=== PATIENT | female | born 1950 | race Caucasian/White ===

== ENCOUNTER → 2020-07-07 11:34 | Outpatient (CLI) | payer OTHER, SELFPAY ==
--- NOTE | ~2020-07-07 | MR_ITS ---
EXAMINATION: MR cervical spine wo con DATE: 07/07/2020 12:25 INDICATION: Neck pain. Left arm pain and tingling. TECHNIQUE: Magnetic resonance imaging (MRI) of the cervical spine was performed without intravenous c ontrast. Sequences included sagittal T2-weighted FSE, sagittal T2-weighted FS FSE, sagittal T1-weight ed FSE, axial MERGE, and axial T2-weighted FSE. COMPARISON: None FINDINGS: Bone alignment is normal. There is mild chronic anterior wedging of C4 vertebral body. Inte rvertebral disc heights are normal. There are changes of anterior fusion procedure from C5 to C7 with anterior plate and screws and healed interbody bone graft at C5-C6. The spinal cord signal intensity is normal. The following disc levels are specifically discussed: C2-C3: There is a left central extrusion. There is mild left uncovertebral joint osteoarthritis. Ther e is severe bilateral facet joint osteoarthritis. There is mild left neural foraminal stenosis. There is no central canal stenosis. C3-C4: The disc does not extend beyond the endplate margin. There is no uncovertebral joint osteoarth ritis. There is ankylosis of the facet joints with moderate right and mild left hypertrophy. There is mild right neural foraminal stenosis. There is no central canal stenosis. C4-C5: The disc is bulging. There is mild bilateral uncovertebral joint hypertrophy. There is moderat e bilateral facet joint osteoarthritis. There is mild right and moderate left neural foraminal stenos is. There is mild central canal stenosis. C5-C6: There is no uncovertebral joint hypertrophy. There is no facet joint hypertrophy. There is no neural foraminal stenosis. There is no central canal stenosis. C6-C7: There is a right central extrusion. There is mild bilateral uncovertebral joint hypertrophy. T here is moderate left facet joint osteoarthritis. There is mild bilateral neural foraminal stenosis. There is mild central canal stenosis with ventral indentation of the spinal cord. C7-T1: The disc does not extend beyond the endplate margin. There is no uncovertebral joint osteoarth ritis. There is severe bilateral facet joint osteoarthritis. There is mild bilateral neural foraminal stenosis. There is no central canal stenosis. IMPRESSION: 1. Moderate cervical spondylosis. 2. Anterior fusion procedure from C5 to C7. Reviewed, dictated and finalized at location A.
== END ==
PROVIDERS: Visit Provider Emergency Medicine
DX: M47.892 Other spondylosis, cervical region (principal); Z98.1 Arthrodesis status
CPT/HCPCS: 72141

== ENCOUNTER → 2020-08-23 11:24 | Outpatient (CLI) | payer OTHER, SELFPAY ==
--- NOTE | ~2020-08-23 | MM_ITS ---
EXAMINATION: MM screening scarlett BI w eri HISTORY: Screening mammogram TECHNIQUE: Craniocaudal and mediolateral oblique 3-D tomosynthesis images were obtained and synthetic 2-D images were generated. CAD analysis was submitted and interpreted. COMPARISON: 05/09/2019, 03/10/2018, 03/09/2017 bilateral digital screening mammogram examinations BREAST PARENCHYMAL COMPOSITION: There are scattered areas of fibroglandular density. FINDINGS: Numerous scattered bilateral benign calcifications are noted. There is no evidence of suspi cious mass, calcification, or architectural distortion to suggest malignancy in either breast. There has been no suspicious interval change. IMPRESSION: 1. No mammographic evidence of malignancy. 2. Recommend routine screening mammography in one year. BI-RADS Category 2: Benign finding(s). Reviewed, dictated and finalized at location A. ETRICS NURSE
== END ==
PROVIDERS: PCP Emergency Medicine; Visit Provider Emergency Medicine
DX: Z12.31 Encounter for screening mammogram for malignant neoplasm of breast (principal)
CPT/HCPCS: 77063; 77067

== ENCOUNTER → 2020-09-04 13:42 | Outpatient (CLI) | payer OTHER, SELFPAY ==
--- NOTE | ~2020-09-04 | XR_ITS ---
EXAMINATION: XR TMJ BI DATE: 09/04/2020 14:10 INDICATION: Sprain of jaw, unspecified site, initial encounter. TECHNIQUE: Open and closed mouth views of both temporomandibular joints on a total of 5 radiographs w ere obtained. COMPARISON: Head CT 11/24/2018 FINDINGS: Bone alignment is normal. There is normal anterior translation of the mandibular condyles i n the open-mouth position. There is severe bilateral temporomandibular joint osteoarthritis. IMPRESSION: 1. Severe bilateral temporomandibular joint osteoarthritis. Reviewed, dictated and finalized at location A. CULTURE DEPARTMENT CHAIR
== END ==
PROVIDERS: PCP Emergency Medicine; Visit Provider Emergency Medicine
DX: S03.40XA Sprain of jaw, unspecified side, initial encounter (principal); M19.09 Primary osteoarthritis, other specified site
CPT/HCPCS: 70330

== ENCOUNTER → 2020-11-19 11:47 | Outpatient (CLI) | payer OTHER, SELFPAY ==
--- NOTE | ~2020-11-19 | XR_ITS ---
EXAMINATION: XR cervical spine 4-5V EXAM DATE: 11/19/2020 12:28 INDICATION: Cervical pain radiating into left arm, occasional left finger tingling. History cervical spine surgery 2009. TECHNIQUE: Cervical spine frontal, lateral, lateral swimmers, and open-mouth odontoid projections. C orrelation was made with cervical spine MR 07/07/2020. FINDINGS: There is intact cervical fusion C5-7 with anterior plate, supporting screws and solid bone bridging suspected. There is overall moderate cervical arthropathy. The vertebral body heights are m aintained between C2-5. The odontoid process is intact. The lateral masses of C1 line up with C2. Pr evertebral soft tissue and pre-dens space are within normal limits. There are no acute fractures iden tified. Lung apices are clear. IMPRESSION: 1. Cervical fusion C5-7. 2. Overall moderate cervical arthropathy. Reviewed, dictated and finalized at location A. OR MANAGER
--- NOTE | ~2020-11-19 | XR_ITS ---
EXAMINATION: XR lumbar spine 2-3V EXAM DATE: 11/19/2020 12:27 INDICATION: Low back pain progressing over last few months. TECHNIQUE: Lumber spine frontal, lateral, lateral L5-S1 projections for interpretation. Comparison is made to prior examination from 05/30/2013. FINDINGS: There is 5 mm anterolisthesis L3 on L4 with moderate loss of this disc height. There is 6 mm anterolisthesis L4 on L5 with mild to moderate loss of this disc height. There is 3 mm retrolisthe sis L5 on S1 with moderate loss of this disc height. Mild to moderate disc disease L1-L3. There is mo derate to severe lower lumbar facet arthropathy. No spondylolysis. Mild aortic arterial sclerosis. Th ere are cholecystectomy clips. Mild lumbar levoscoliosis. Sacrum, sacroiliac joints, sacral arcuate l jose armando are intact. Compared to 2012, mild progression in the subluxations, and more appreciable progression of the spond ylosis. IMPRESSION: 1. Multiple lumbar subluxations and moderate disc disease. 2. Advanced lower lumbar facet arthropathy. Reviewed, dictated and finalized at location A. ES' REGISTRY DIRECTOR
== END ==
PROVIDERS: Visit Provider Pain Medicine Interventional Pain Medicine
DX: M47.813 Spondylosis without myelopathy or radiculopathy, cervicothoracic region (principal); Z51.81 Encounter for therapeutic drug level monitoring; Z79.899 Other long term (current) drug therapy; M50.123 Cervical disc disorder at C6-C7 level with radiculopathy; M47.816 Spondylosis without myelopathy or radiculopathy, lumbar region; R68.84 Jaw pain; M50.122 Cervical disc disorder at C5-C6 level with radiculopathy; F33.1 Major depressive disorder, recurrent, moderate; Z98.1 Arthrodesis status
CPT/HCPCS: 72050; 72100

== ENCOUNTER 2020-11-26 11:13 | Outpatient (CLI) | payer OTHER, MEDICARE, SELFPAY | END 2020-11-26 11:14 | disposition home or self-care (01) | LOC: ANHCOVIDVC 11:13 | PROVIDERS: PCP Emergency Medicine | DX: Z23 Encounter for immunization (principal) | CPT/HCPCS: 0001A; 91300 ==

== ENCOUNTER 2020-12-17 11:11 | Outpatient (CLI) | payer OTHER, MEDICARE, SELFPAY | END 2020-12-17 11:12 | disposition home or self-care (01) | LOC: ANHCOVIDVC 11:11 | PROVIDERS: PCP Emergency Medicine | DX: Z23 Encounter for immunization (principal) | CPT/HCPCS: 0002A; 91300 ==

== ENCOUNTER 2021-02-15 12:34 | Emergency (ER) | payer OTHER, SELFPAY ==
--- NOTE | ~2021-02-15 | CT_ITS ---
EXAMINATION: CT brain wo con INDICATION: Right-sided headache, photophobia and dizziness COMPARISON: 11/24/2018 TECHNIQUE: Standard unenhanced head CT. The dose-length product (DLP) was 529.67 mGy-cm. The mA was a djusted according to patient size. Iterative reconstruction technique was employed. FINDINGS: There is no acute intraparenchymal hemorrhage. No evidence of mass lesion. No evidence of a cute infarction. There is mild periventricular and subcortical hypodensity probably related to small vessel ischemic disease. There is mild prominence of the sulci and ventricles related to cerebral atr ophy. Intracranial calcified cerebral atherosclerosis is noted. There are no extra-axial collections. There is no mass effect or midline shift. Changes in the globes are likely from ocular lens surgery. The visualized sinuses and mastoid air cells are well aerated. IMPRESSION: 1. No acute intracranial abnormality. 2. Age related findings. Reviewed, dictated and finalized at location B.
[2021-02-15 12:37] VITALS: BP 141/48; PULSE 67; RESP 20; TEMP 36.6; O2SAT 98
--- NOTE | 2021-02-15 13:08 | ED.HA ---
HPI - Headache General Chief Complaint: Headache Stated Complaint: headache Time Seen by Provider: 02/15/21 12:50 Source: patient Mode of arrival: ambulatory Limitations: no limitations History of Present Illness HPI Narrative: Patient is a 68-year-old female complaining of headache, right-sided, dull, 6 out of 10, nonradiating started approximately 2 weeks ago. Patient denies any dizziness, speech or visual disturbance, focal weakness or numbness, unsteady gait, neck pain or stiffness, fever or chills. Related Data Home Medications Medication Instructions Recorded Confirmed cholecalciferol (vitamin D3) 25 1,000 unit PO DAILY 07/27/19 10/23/20 mcg (1,000 unit) capsule oxybutynin chloride mg PO 02/15/21 Allergies Allergy/AdvReac Type Severity Reaction Status Date / Time No Known Allergies Allergy Unknown Unverified 07/06/19 09:14 No Known Allergies Allergy Uncoded 07/06/19 09:14 Review of Systems Review of Systems: All systems reviewed & are unremarkable except as noted in HPI and below Constitutional: Constitutional: Denies body ache(s), Denies chills, Denies excessive sweating, Denies fatigue, Denies fever(s), Denies headache(s), Denies lethargy, Denies malaise, Denies weakness and Denies weight loss Eyes: Eyes: Denies blurry vision, Denies change in vision and Denies loss of vision ENT: Denies dizziness, Denies ear discharge, Denies headache(s), Denies lip swelling, Denies epistaxis, Denies nasal congestion, Denies neck pain, Denies throat swelling and Denies tongue swelling Cardiovascular: Cardiovascular: Denies chest pain, Denies chest pain at rest, Denies chest pain with activity, Denies diaphoresis, Denies rapid heart rate, Denies edema, Denies irregular heart rhythm, Denies lightheadedness, Denies palpitations, Denies dyspnea and Denies dyspnea on exertion Respiratory: Respiratory: Denies chest congestion, Denies cough, Denies hemoptysis, Denies dyspnea and Denies dyspnea on exertion Gastrointestinal: Gastrointestinal: Denies abdominal pain, Denies melena, Denies hematochezia, Denies diarrhea, Denies nausea, Denies vomiting and Denies hematemesis Musculoskeletal: Musculoskeletal: Denies abnormal gait, Denies deformity, Denies joint swelling, Denies limited range of motion, Denies neck pain and Denies numbness Neurologic: Denies Abnormal speech present, Denies abnormal gait, Denies confusion, Denies dizziness, Denies focal weakness, Denies loss of vision, Denies numbness, Denies Other visual disturbances, Denies Sensory deficit (Neuro) and Denies weakness Psychiatric: Psychiatric: Denies confusion, Denies depression, Denies auditory hallucinations, Denies homicidal ideation and Denies suicidal ideation Endocrine: Endocrine: Denies cold intolerance, Denies excessive sweating, Denies fatigue, Denies heat intolerance and Denies palpitations Hematologic/Lymphatic: Hematologic/Lymphatic: Denies easy bleeding and Denies easy bruising Allergic/Immunologic: Allergic/Immunologic: Denies lip swelling, Denies throat swelling and Denies tongue swelling PMFSH Past Medical History Medical History (Updated 02/15/21 @ 14:22 by Robin Mondragon MD) Depression Family History Family History Mother Acute myocardial infarction, Onset Age: 68 Father Cerebrovascular accident Sibling Cerebrovascular accident Family history of malignant neoplasm Family history of heart disease in male family member before age 55 Other Diabetes mellitus Family history of gastrointestinal disorder Hypertension Social History Social History Smoking status: Never smoker Alcohol intake: never Gender identity (if verbalized by the patient): Female Exam Const: General: cooperative, healthy appearing, comfortable, no acute distress, well developed, alert and awake; No confusion Orientation/consciousn
[2021-02-15 13:39] VITALS: BP 146/64; PULSE 66; RESP 14; O2SAT 98
[2021-02-15] MEDS: HYDROmorphone HCL INJ (*CRX) 1 MG/ML SYR 0.5 MG IV PUSH (13:39)
[2021-02-15 14:43] VITALS: BP 135/66; PULSE 65; RESP 15; O2SAT 98
== END 2021-02-15 14:54 | disposition home or self-care (01) ==
PROVIDERS: Emergency Provider Emergency Medicine; PCP Emergency Medicine
DX: R51.9 Headache, unspecified (principal)
CPT/HCPCS: 70450; 96374; 99284; J1170

== ENCOUNTER 2021-05-20 10:28 | Outpatient (CLI) | payer OTHER, SELFPAY ==
--- NOTE | ~2021-05-20 | XR_ITS ---
EXAMINATION: XR barium swallow DATE: 05/20/2021 11:04 INDICATION: Dysphagia TECHNIQUE: The patient drank thick barium, gas-producing crystals, and thin barium. Fluoroscopy of th e hypopharynx and esophagus was performed. Fluoroscopy exposure time was 1.1 minutes. The DAP for thi s procedure was 2.822 Gycm2. COMPARISON: None. FINDINGS: There is no mass or stricture of the esophagus. Esophageal motility is normal. There is no hiatal hernia. There was no gastroesophageal reflux with provocative maneuvers. Changes of anterior f usion procedure are noted in the cervical spine. IMPRESSION: 1. No correlate identified for the patient's symptoms. Reviewed, dictated and finalized at location A.
== END 2021-05-20 10:29 | disposition home or self-care (01) ==
LOC: ANHIMG 10:29
PROVIDERS: PCP Emergency Medicine; Visit Provider Otolaryngology
DX: K14.6 Glossodynia (principal)
CPT/HCPCS: 74220

== ENCOUNTER 2021-06-12 00:06 | Day surgery (SDC) | payer OTHER, SELFPAY ==
[2021-04-18 12:55] VITALS: BMI 26.6
[2021-06-04 16:03] VITALS: BMI 25.8
[2021-06-12 11:11] VITALS: BP 138/68; PULSE 62; RESP 16; TEMP 36.1; O2SAT 97
--- NOTE | 2021-06-12 11:21 | WPDANESEPPF ---
Anes - Initial Pre Proc Eval Procedure: Operation Date: 06/12/21 11:30 Proposed Procedures p Screening Colonoscopy - Wesley Pineda MD Date/Time: 06/12/21 11:21 Surgeon: Wesley Pineda MD Pre Op Diagnosis: neoplasm screening Patient Data Age: 71 Gender: F Height: 1.57 m Weight: 62.5 kg Last Vital Signs Temp 36.1 C L 06/12/21 11:11 Pulse 62 06/12/21 11:11 Resp 16 06/12/21 11:11 BP 138/68 06/12/21 11:11 Pulse Ox 97 06/12/21 11:11 Allergies Allergy/AdvReac Type Severity Reaction Status Date / Time No Known Allergies Allergy Unknown Verified 06/12/21 11:09 Home Medications Medication Instructions Recorded Confirmed Type cholecalciferol (vitamin D3) 25 1,000 unit PO DAILY 07/27/19 06/12/21 History mcg (1,000 unit) capsule lisinopril 40 mg tablet 40 mg PO DAILY #90 tablet 10/23/20 06/12/21 Rx oxybutynin chloride 5 mg PO DAILY 02/15/21 06/12/21 History amlodipine 10 mg PO DAILY 04/18/21 06/12/21 History lactobacillus combination no.8 1 cell PO DAILY 04/18/21 06/12/21 History [Adult Probiotic] pantoprazole 40 mg PO BID 04/18/21 06/12/21 History sertraline 100 mg PO DAILY 04/18/21 06/12/21 History Patient hx anesthesia problems: none Family hx anesthesia problems: none PMFSH Past Medical History Medical History (Updated 06/12/21 @ 11:23 by Ace Guzman MD) Cervical radiculopathy Depression GERD (gastroesophageal reflux disease) HTN (hypertension) Family History Family History Mother Acute myocardial infarction, Onset Age: 68 Father Cerebrovascular accident Sibling Cerebrovascular accident Family history of malignant neoplasm Family history of heart disease in male family member before age 55 Other Diabetes mellitus Family history of gastrointestinal disorder Hypertension Social History Social History Smoking status: Never smoker Alcohol intake: never Substance use type: does not use Living arrangements: with family Gender identity (if verbalized by the patient): Female Spiritual care concerns: No Anes - Eval Final PreProcedure Day of Procedure 06/12/21 11:21 Patient weight: overweight Heart: regular rate and rhythm Lungs: clear to auscultation and normal air movement Airway: Mallampati scale class II Neurological: alert and oriented Last oral intake: >/= 8 hours ASA classification: II Emergent: no Anesthetic plan: proceed Anesthesia type and monitoring: general GIVS Informed Consent: The patient's anesthetic plan and its attendant risks and benefits were discussed with the patient/family/POA. Questions were solicited and answers provided to the satisfaction of the patient/family/POA.
[2021-06-12] MEDS: LACTATED RINGERS 1,000 ML 150 ML IV CONT (11:22)
--- NOTE | 2021-06-12 12:04 | PM.HPGS ---
History of Present Illness History of Present Illness Consent: Risks, benefits, and alternatives have been discussed and questions answered. Patient agrees to proceed with procedure. Chief complaint: neoplasm screening Narrative: Ruth Lopez is a 71 year old female with colon polyp in 2012 Review of Systems Constitutional: Constitutional: Denies headache(s) and Denies weakness Eyes: Eyes: Denies blurry vision ENT: Reports Normal hearing present, Denies headache(s) and Denies neck pain Cardiovascular: Cardiovascular: Denies chest pain and Denies dyspnea Respiratory: Respiratory: Denies dyspnea Gastrointestinal: Gastrointestinal: Reports no additional gastrointestinal complaints Genitourinary: Genitourinary: Denies dysuria Musculoskeletal: Musculoskeletal: Denies neck pain Integumentary/Breasts: Skin/Breast: Denies dry skin Neurologic: Reports Normal hearing present, Denies headache(s) and Denies weakness Psychiatric: Psychiatric: Denies anxiety Endocrine: Endocrine: Denies change in body appearance Hematologic/Lymphatic: Hematologic/Lymphatic: Denies easy bleeding Allergic/Immunologic: Allergic/Immunologic: Denies urticaria PMF Past Medical History Medical History (Updated 06/12/21 @ 12:04 by Wesley Pineda MD) Cervical radiculopathy Colon polyp Depression GERD (gastroesophageal reflux disease) HTN (hypertension) Family History Family History Mother Acute myocardial infarction, Onset Age: 68 Father Cerebrovascular accident Sibling Cerebrovascular accident Family history of malignant neoplasm Family history of heart disease in male family member before age 55 Other Diabetes mellitus Family history of gastrointestinal disorder Hypertension Social History Social History Smoking status: Never smoker Alcohol intake: never Substance use type: does not use Living arrangements: with family Gender identity (if verbalized by the patient): Female Spiritual care concerns: No Meds Home Medications and Allergies Home Medications Medication Instructions Recorded Confirmed Type cholecalciferol (vitamin D3) 25 1,000 unit PO DAILY 07/27/19 06/12/21 History mcg (1,000 unit) capsule lisinopril 40 mg tablet 40 mg PO DAILY #90 tablet 10/23/20 06/12/21 Rx oxybutynin chloride 5 mg PO DAILY 02/15/21 06/12/21 History amlodipine 10 mg PO DAILY 04/18/21 06/12/21 History lactobacillus combination no.8 1 cell PO DAILY 04/18/21 06/12/21 History [Adult Probiotic] pantoprazole 40 mg PO BID 04/18/21 06/12/21 History sertraline 100 mg PO DAILY 04/18/21 06/12/21 History Allergies Allergy/AdvReac Type Severity Reaction Status Date / Time No Known Allergies Allergy Unknown Verified 06/12/21 11:09 Vital Signs Vital Signs - 24 hr 06/12/21 11:11 Temperature 97.0 F L Pulse Rate 62 Respiratory Rate 16 Blood Pressure 138/68 Pulse Oximetry 97 Exam Const: General: comfortable and no acute distress HENMT: General nose exam: Normal nares present Eyes: General: appearance normal, both eyes and all related structures Neck: Neck: no JVD Resp: Auscultation: clear to auscultation bilaterally Cardio: Rate: regular rate Rhythm: regular rhythm GI: Inspection: non-distended GI Palp: Yes Soft to palpation Skin: General skin exam: normal color Neuro: General: gait normal Speech: normal speech Extrem: General: normal to inspection Psych: Mental Status: mental status grossly normal Assessment and Plan Assessment and plan (1) Colon polyp: Code(s): K63.5 - Polyp of colon Status: Acute Assessment and Plan: colonoscopy
[2021-06-12 12:37] VITALS: BP 142/67; PULSE 50; RESP 25; O2SAT 96
[2021-06-12 12:47] VITALS: BP 135/95; PULSE 51; RESP 24; O2SAT 99
[2021-06-12 12:57] VITALS: BP 134/70; PULSE 50; RESP 18; O2SAT 98
== END 2021-06-12 13:12 | disposition home or self-care (01) ==
PROVIDERS: PCP Emergency Medicine; Visit Provider Internal Medicine Gastroenterology
PROC: 0DJD8ZZ Inspection of Lower Intestinal Tract, Via Natural or Artificial Opening Endoscopic (ICD-10-PCS; CPT 45378; principal; 2021-06-12 11:30)
DX: Z12.11 Encounter for screening for malignant neoplasm of colon (principal); D12.0 Benign neoplasm of cecum; D12.3 Benign neoplasm of transverse colon; K63.5 Polyp of colon; K57.30 Diverticulosis of large intestine without perforation or abscess without bleeding; K64.8 Other hemorrhoids; I10 Essential (primary) hypertension; K21.9 Gastro-esophageal reflux disease without esophagitis; F32.9 Major depressive disorder, single episode, unspecified
CPT/HCPCS: 45380; 45385; 88305; J2001; J2704; J7120

== ENCOUNTER → 2021-10-04 09:43 | Outpatient (CLI) | payer OTHER, SELFPAY ==
--- NOTE | ~2021-10-04 | MM_ITS ---
EXAMINATION: MM screening scarlett BI w eri HISTORY: Screening TECHNIQUE: Craniocaudal and mediolateral oblique 3-D tomosynthesis images were obtained and synthetic 2-D images were generated. CAD analysis was submitted and interpreted. COMPARISON: Comparison to multiple prior studies sequentially, with oldest reviewed study dated 04/2015. BREAST PARENCHYMAL COMPOSITION: There are scattered areas of fibroglandular density. FINDINGS: There is no evidence of suspicious mass, calcification, or architectural distortion to sugg est malignancy in either breast. There has been no suspicious interval change. IMPRESSION: 1. No mammographic evidence of malignancy. 2. Recommend routine screening mammography in one year. BI-RADS Category 1: Negative Reviewed, dictated and finalized at location A. ING REGULATION ENFORCEMENT OFFICER
== END ==
PROVIDERS: PCP Emergency Medicine; Visit Provider Emergency Medicine
DX: Z12.31 Encounter for screening mammogram for malignant neoplasm of breast (principal)
CPT/HCPCS: 77063; 77067

== ENCOUNTER → 2021-11-18 11:35 | Outpatient (CLI) | payer OTHER, SELFPAY ==
--- NOTE | ~2021-11-18 | XR_ITS ---
XR lumbar spine 2-3V DATE: 11/18/2021 12:06 INDICATION: Lumbosacral radiculopathy TECHNIQUE: Standing AP, lateral and coned lateral lumbosacral views COMPARISON: 11/19/2020 lumbar spine FINDINGS: There is diffuse osteopenia. There is mild levoscoliosis of lumbar spine. There is grade 1 anterolisthesis at L3-4 and L4-5 due to prominent degenerative change at the apophys eal joints. There is moderate degenerative disc disease at L1-2, mild at L2-3, probably severe at L3-4, mild at L 4-5 and L5-S1. No fracture or bone destruction is detected. The included lower thoracic and lumbar pedicles are inta ct. The sacroiliac joints are normal. Status post cholecystectomy. Extensive calcification of the abdominal aorta. IMPRESSION: Diffuse osteopenia Mild levoscoliosis Multilevel degenerative disc disease, most pronounced at L3-4 Prominent degenerative change at the apophyseal joints with grade 1 anterolisthesis at L3-4 and L4-5 Little interval change since 11/19/2020 Reviewed, dictated and finalized at location A. LIANCE MONITOR IMPRESSION: Diffuse osteopenia Mild levoscoliosis Multilevel degenerative disc disease, most pronounced at L3-4 Prominent degenerative change at the apophyseal joints with grade 1 anterolisth esis at L3-4 and L4-5 Little interval change since 11/19/2020
--- NOTE | ~2021-11-18 | XR_ITS ---
XR cervical spine 4-5V DATE: 11/18/2021 12:06 INDICATION: Radiculopathy, cervical region TECHNIQUE: AP, open-mouth, lateral, swimmer views COMPARISON: 11/19/2020 cervical spine FINDINGS: Status post anterior cervical spine surgical fusion at C5 7. Diffuse osteopenia. C1 and C2 are normally aligned and the odontoid process is intact. No fracture or dislocation or locked facet or prevertebral soft tissue swelling. IMPRESSION: Status post anterior surgical fusion at C5 7 Osteopenia Reviewed, dictated and finalized at location A. CONTENT DIRECTOR
== END ==
PROVIDERS: Visit Provider Family Medicine
DX: M54.16 Radiculopathy, lumbar region (principal); M54.12 Radiculopathy, cervical region; Z98.1 Arthrodesis status; M85.88 Other specified disorders of bone density and structure, other site; M41.86 Other forms of scoliosis, lumbar region; M51.36 Other intervertebral disc degeneration, lumbar region; M43.16 Spondylolisthesis, lumbar region
CPT/HCPCS: 72050; 72100

== ENCOUNTER → 2021-11-26 12:38 | Outpatient (CLI) | payer OTHER, SELFPAY ==
--- NOTE | ~2021-11-26 | MR_ITS ---
EXAMINATION: MR cervical spine wo con DATE: 11/26/2021 13:42 INDICATION: Right neck pain. TECHNIQUE: Magnetic resonance imaging (MRI) of the cervical spine was performed without intravenous c ontrast. Sequences included sagittal T2-weighted FSE, sagittal STIR FSE, sagittal T1-weighted FSE, ax ial MERGE, and axial T2-weighted FSE. COMPARISON: Cervical spine MRI 07/07/2020 FINDINGS: Bone alignment is normal. There are changes of anterior fusion procedure from C5 to C7 with anterior plate and screws. There is healed interbody bone graft at C5-C6. There is no bridging bone at C6-C7. There is mild chronic anterior wedging of C4 vertebral body. There is increased T2-weighted signal intensity in the spinal cord at C6-C7, consistent with myelomalacia. The following disc level s are specifically discussed: C2-C3: The disc does not extend beyond the endplate margin. There is no uncovertebral joint osteoarth ritis. There is severe bilateral facet joint osteoarthritis. There is mild left neural foraminal sten osis. There is no central canal stenosis. C3-C4: The disc does not extend beyond the endplate margin. There is mild right uncovertebral joint o steoarthritis. There is ankylosis of the facet joints with mild hypertrophy. There is moderate right neural foraminal stenosis. There is no central canal stenosis. C4-C5: The disc does not extend beyond the endplate margin. There is mild bilateral uncovertebral lara nt osteoarthritis. There is severe bilateral facet joint osteoarthritis. There is mild right and mode rate left neural foraminal stenosis. There is no central canal stenosis. C5-C6: There is mild bilateral uncovertebral joint hypertrophy. There is mild left facet joint hypert rophy. There is no neural foraminal stenosis. There is no central canal stenosis. C6-C7: There is a right central extrusion. There is moderate bilateral uncovertebral joint osteoarthr itis. There is mild right and severe left facet joint osteoarthritis. There is mild bilateral neural foraminal stenosis. There is moderate central canal stenosis with ventral and dorsal indentation of s enmanuel cord. C7-T1: The disc does not extend beyond the endplate margin. There is no uncovertebral joint osteoarth ritis. There is severe bilateral facet joint osteoarthritis. There is mild bilateral neural foraminal stenosis. There is no central canal stenosis. IMPRESSION: 1. Myelomalacia at C6-C7. 2. Anterior fusion procedure from C5 to C7. 3. Moderate cervical spondylosis, stable from 07/07/2020. Reviewed, dictated and finalized at location A. NESS OFFICE TECHNOLOGY INSTRUCTOR
== END ==
PROVIDERS: PCP Emergency Medicine; Visit Provider Emergency Medicine
DX: Z98.1 Arthrodesis status (principal); M47.816 Spondylosis without myelopathy or radiculopathy, lumbar region; M48.061 Spinal stenosis, lumbar region without neurogenic claudication; G95.89 Other specified diseases of spinal cord
CPT/HCPCS: 72141

== ENCOUNTER 2022-01-17 13:56 | Outpatient (CLI) | payer OTHER, SELFPAY ==
--- NOTE | ~2022-01-17 | CT_ITS ---
EXAMINATION: CT cervical spine wo con DATE: 01/17/2022 14:19 INDICATION: Cervical spondylosis with myelopathy. TECHNIQUE: Computed tomography (CT) of the cervical spine was performed without intravenous contrast. Automated exposure control and iterative reconstruction technique were employed. The dose-length pro duct was 194.98 mGy-cm. COMPARISON: Cervical spine MRI 11/26/2021 FINDINGS: There is 4 degrees dextrocurvature of cervical spine. Vertebral body heights are normal. Th ere are changes of anterior fusion procedure from C5 to C7 with anterior plate and screws. There is h ealed interbody bone graft at C5-C6. Interbody bone graft does not demonstrate interbody bridging at C6-C7. There is mildly decreased disc height at C4-C5. The following disc levels are specifically dis cussed: C2-C3: There is mild left uncovertebral joint osteoarthritis. There is moderate right and severe left facet joint osteoarthritis. There is mild left neural foraminal stenosis. There is no central canal stenosis. C3-C4: There is ankylosis of the uncovertebral joints with mild hypertrophy on the right. There is an kylosis of the facet joints with severe right and mild left hypertrophy. There is moderate right neur al foraminal stenosis. There is no central canal stenosis. C4-C5: There is mild left uncovertebral joint osteoarthritis. There is severe bilateral facet joint o steoarthritis. There is mild bilateral neural foraminal stenosis. There is no central canal stenosis. C5-C6: There is mild bilateral uncovertebral joint hypertrophy. There is ankylosis of the facet joint s with mild hypertrophy. There is mild bilateral neural foraminal stenosis. There is mild central can al stenosis. C6-C7: There is mild bilateral uncovertebral joint osteoarthritis. There is mild right and severe lef t facet joint osteoarthritis. There is mild right and moderate left neural foraminal stenosis. There is mild central canal stenosis. C7-T1: There is no uncovertebral joint osteoarthritis. There is mild right and severe left facet join t osteoarthritis. There is mild left neural foraminal stenosis. There is no central canal stenosis. IMPRESSION: 1. Anterior fusion procedure from C5 to C7 without bridging interbody bone at C6-C7. 2. Moderate cervical spondylosis. Reviewed, dictated and finalized at location B. IMPRESSION: 1. Anterior fusion procedure from C5 to C7 without bridging interbody bone at C 6-C7. 2. Moderate cervical spondylosis.
== END 2022-01-17 13:57 | disposition home or self-care (01) ==
PROVIDERS: PCP Emergency Medicine; Visit Provider Neurological Surgery
DX: M47.23 Other spondylosis with radiculopathy, cervicothoracic region (principal); M48.03 Spinal stenosis, cervicothoracic region; Z98.1 Arthrodesis status
CPT/HCPCS: 72125

== ENCOUNTER 2022-02-06 06:50 | Outpatient (CLI) | payer OTHER, SELFPAY ==
[2022-02-03 12:16] VITALS: BMI 24.9
[2022-02-06] VITALS (7 sets, daily range): BP systolic 126–131; BP diastolic 52–92; PULSE 45–51; RESP 16–20; TEMP 36.3; O2SAT 95–97
--- NOTE | ~2022-02-06 | CT_ITS ---
EXAMINATION: CT cervical spine w con DATE: 02/06/2022 09:19 INDICATION: Cervical spondylosis with myelopathy TECHNIQUE: Computed tomography (CT) myelogram of the cervical spine was performed with intrathecal co ntrast but without intravenous contrast. Details of the intrathecal contrast demonstration of been di ctated separately. Automated exposure control and iterative reconstruction technique were employed. T he dose-length product was 256.59 mGy-cm. COMPARISON: Cervical spine CT dated 01/17/2022 FINDINGS: No interval change in 4 mm lower cervical dextrocurvature. Sagittal alignment is normal. C5-C7 anteri or spinal fusion with anterior plate and screw fixation. There is solid fusion across the C5-C6 disc space. The C6-C7 disc space remains unfused with incorporation of bone graft material along the infer ior end plate of C6 but with no more caudal bridging to the C7 vertebral body. There is small amount of heterotopic ossification fused to the right posterior endplate of C7 which narrows the central can al is would be detailed below. Unfused vertebral body heights are normal. Mild disc height loss at C4 -C5. Cervical soft tissues are unremarkable. Mastoid air cells, middle ear cavities and visualized po rtions of the paranasal sinuses, airway and apices of lungs are clear. The following disc levels are specifically discussed: C2-C3: Small central disc protrusion. There is mild bilateral uncovertebral joint osteoarthritis. The re is moderate right and severe left facet joint osteoarthritis. There is mild left neural foraminal stenosis. There is minimal central canal stenosis. C3-C4: Minimal central disc protrusion. There is ankylosis of the bilateral uncovertebral and facet j oints with severe hypertrophic changes at the right facet joint and mild hypertrophic changes at the left facet and right uncovertebral joints. There is moderate right neural foraminal stenosis. There i s minimal central canal stenosis. C4-C5: The disc does not extend beyond the endplate margin. There is mild left uncovertebral joint os teoarthritis. There is severe bilateral facet joint osteoarthritis. There is mild bilateral neural fo raminal stenosis. There is no central canal stenosis. C5-C6: The disc spaces solidly fused with small right paracentral osteophyte. No significant hypertro phic change at the fused uncovertebral joints. There is beginning fusion of the bilateral facet joint s with mild hypertrophy. There is mild bilateral neural foraminal stenosis. There is mild central can al stenosis. C6-C7: Mild hypertrophic change along the endplates. Right paracentral heterotopic ossicle at the lev el of the still unfused disc space which measures 10 mm left to right, 9 mm craniocaudally and up tor 4 mm in AP diameter. There is mild bilateral uncovertebral joint osteoarthritis. There is mild right and severe left facet joint osteoarthritis. There is mild right and moderate left neural foraminal s tenosis. There is mild to moderate right-sided predominant central canal stenosis with the heterotopi c ossicle indenting the right ventral surface of the cord. C7-T1: The disc does not extend beyond the endplate margin. There is minimal bilateral uncovertebral joint osteoarthritis. There is mild right and severe left facet joint osteoarthritis. There is mild l eft neural foraminal stenosis. There is no central canal stenosis. IMPRESSION: 1. Moderate cervical spondylosis with instrumented anterior spinal fusion from C5-C7 which remains wi thout bridging interbody bone at the C6-C7 level. Reviewed, dictated and finalized at location A. IMPRESSION: 1. Moderate cervical spondylosis with instrumented anterior spinal fusion from C5-C7 which remains without bridging interbody bone at the C6-C7 leve
--- NOTE | ~2022-02-06 | XR_ITS ---
EXAMINATION: XR myelogram spine cervical DATE: 02/06/2022 09:09 INDICATION: Cervical spine pain TECHNIQUE: The procedure including the risks and benefits was discussed with the patient. Risks discu ssed included spinal headache, cerebrospinal fluid leak, bleeding, and infection. The patient underst ood the risks and agreed to proceed. A timeout was performed to verify the patient's name, date of , and procedure to be performed. The skin overlying the L4-L5 level was prepped and draped in usual sterile fashion. Subcutaneous 1% lidocaine was used for local anesthesia. A 22 gauge spinal n eedle was advanced under fluoroscopic guidance. A total of 10 mL with Omnipaque-300 was injected with intra-articular administration confirmed with intermittent fluoroscopy. The needle was removed and t he entry site was cleaned and dressed. The footplate of the table was then elevated with cephalad adv ancement of the contrast bolus observed with intermittent fluoroscopy. PA and lateral images of the c ervical spine were obtained. There were no immediate complications. Fluoroscopy exposure time was 0.6 minutes. A total of 10 fluoroscopic images were recorded. FINDINGS: Real-time fluoroscopy demonstrates the needle at the L4-L5 level. Injected contrast fills a intrathecal space at the lumbar spine. Lucent bands consistent with disc bulges at L3-L4 and L4-L5. Subsequent images demonstrate faint contrast within the intrathecal space at the cervical spine. Ther e is been a prior C5-7 anterior spinal fusion with anterior plate and screw fixation. IMPRESSION: 1. Successful fluoro-guided lumbar puncture and intrathecal contrast administration for subsequent CT cervical myelogram. See separate CT myelogram report for analysis of the cervical spine. Reviewed, dictated and finalized at location A. IMPRESSION: 1. Successful fluoro-guided lumbar puncture and intrathecal contrast administra tion for subsequent CT cervical myelogram. See separate CT myelogram report for analysis of the cervical spine.
[2022-02-06 07:34] LABS: Mean Platelet Volume 11.3 fl (7.4-10.4); Platelet Count Result 172 k/mm3 (150-375)
[2022-02-06 07:50] LABS: Prothrombin Time 13.2 Seconds (11.1-14.7)
--- NOTE | 2022-02-06 09:44 | SUR.PHASEII ---
pt c/o chronic neck and back pain. This nurse attempted to call Dr. davies and I got no answer. This nurse will attempt to call again in 5 minutes.
[2022-02-06] MEDS: oxyCODONE/ACETAMINOPHEN (*CRX) 5-325 MG TABLET 1 TABLET PO (10:09)
--- NOTE | 2022-02-06 11:44 | SUR.PHASEII ---
PT OK TO GO HOME PER DR. FRITZ AND HE SAID HE DID NOT NEED TO SEE PT BEFORE GOING HOME. PT MEETS DISCHARGE CRITERIA.
== END 2022-02-06 11:45 | disposition home or self-care (01) ==
PROVIDERS: PCP Emergency Medicine; Referring Provider Neurological Surgery; Visit Provider Radiology Diagnostic Radiology
DX: M47.813 Spondylosis without myelopathy or radiculopathy, cervicothoracic region (principal); M48.03 Spinal stenosis, cervicothoracic region; Z51.81 Encounter for therapeutic drug level monitoring; Z79.899 Other long term (current) drug therapy
CPT/HCPCS: 36415; 62302; 72126; 85049; 85610; A9270; Q9967

== ENCOUNTER 2022-04-15 11:10 | Outpatient (CLI) | payer OTHER, SELFPAY ==
--- NOTE | ~2022-04-15 | XR_ITS ---
EXAMINATION:XR cervical spine 4-5V DATE: 04/15/2022 11:36 INDICATION: Neck pain TECHNIQUE: AP and lateral views of the cervical spine in neutral, flexion, and extension are submitte d COMPARISON: 11/18/2021 FINDINGS: Alignment is normal. The odontoid appears to be intact. No fracture is identified. There ar e changes of anterior fusion from C5 through C7. Bone alignment is normal. There is no laxity with fl exion or extension. There is moderate to severe multilevel facet and uncovertebral joint osteoarthrit is. Prevertebral soft tissues are normal. IMPRESSION: 1. Changes of anterior fusion from C5 through C7 and moderate cervical spondylosis without acute find ings or significant interval change. Reviewed, dictated and finalized at location B. IMPRESSION: 1. Changes of anterior fusion from C5 through C7 and moderate cervical spondylo sis without acute findings or significant interval change.
== END 2022-04-15 11:11 | disposition home or self-care (01) ==
PROVIDERS: PCP Emergency Medicine
DX: S12.9XXA Fracture of neck, unspecified, initial encounter (principal); Z98.1 Arthrodesis status; M47.812 Spondylosis without myelopathy or radiculopathy, cervical region
CPT/HCPCS: 72050

== ENCOUNTER 2022-06-13 07:17 | Outpatient (CLI) | payer OTHER, SELFPAY ==
--- NOTE | ~2022-06-13 | NM_ITS ---
EXAMINATION: NM kelly stress w perfusion DATE: 06/13/2022 13:13 CDT INDICATION: Chest pain TECHNIQUE: Rest images were obtained following intravenous administration of 9.5 mCi Tc99m tetrofosmi n (Myoview). The patient was infused intravenously with Lexiscan (regadenoson). Then, 30 mCi Tc99m te trofosmin (Myoview) was administered intravenously, and stress images were obtained. Data was reconst ructed into short axis and horizontal and vertical long axis SPECT images. Gated SPECT images were al so obtained. COMPARISON: None. FINDINGS: There is no definite reversible or fixed perfusion abnormality to suggest ischemia or infar ction. There is no segmental wall motion abnormality. Left ventricular ejection fraction measures 7 6%. IMPRESSION: 1. No definite ischemia or infarct. 2. Normal left ventricular ejection fraction measuring 76%. Reviewed, dictated and finalized at location A.
--- NOTE | 2022-06-13 07:57 | EST_ITS ---
Patient Info Name: Ruth Lopez Age: 72 years : 1950 Gender: Female Ht: 62 in Wt: 135 lbs BSA: 1.65 m2 Exam Date: 06/13/2022 9:50 AM Exam Location: [facility] Stress Patient Status: Outpatient Admit Date: 06/13/2022 Staff Ordering Physician: Jonathan Damon DO Attending Provider: Jonathan Damon DO Exercise Technologist: Jaelyn Mcintosh RDCS Exercise Physician: Jonathan Damon DO Exam Type: CA stress kelly w NM Study Info Indications R07.9 - Chest pain, unspecified A regadenoson stress test was performed. Summary 1. 1. Negative lexiscan stress test for ischemic ST changes by ECG criteria. 2. 2. Baseline hypertension. 3. 3. Nuclear scan to follow and will be reported separately. Please correlate with it. 4. 4. Patient informed of the above results. Protocol: Lexiscan Stress ECG Details Stage: REST Duration (min): 1 min : 21 sec HR (bpm): 53 SBP (mmHg): --- DBP (mmHg): --- Stage: REST Duration (min): 1 min : 47 sec HR (bpm): 48 SBP (mmHg): 176 DBP (mmHg): 83 Stage: REST Duration (min): 7 min : 34 sec HR (bpm): 57 SBP (mmHg): 176 DBP (mmHg): 83 Stage: STAGE 1 Duration (min): 0 min : 59 sec HR (bpm): 73 SBP (mmHg): 176 DBP (mmHg): 83 Stage: RECOVERY Duration (min): 1 min : 0 sec HR (bpm): 73 SBP (mmHg): 198 DBP (mmHg): 78 Stage: RECOVERY Duration (min): 2 min : 0 sec HR (bpm): 71 SBP (mmHg): 170 DBP (mmHg): 78 Stage: RECOVERY Duration (min): 3 min : 0 sec HR (bpm): 68 SBP (mmHg): 148 DBP (mmHg): 78 Stage: RECOVERY Duration (min): 4 min : 0 sec HR (bpm): 62 SBP (mmHg): 148 DBP (mmHg): 78 Stage: RECOVERY Duration (min): 4 min : 54 sec HR (bpm): 69 SBP (mmHg): 152 DBP (mmHg): 79 Rest HR: 57 bpm Peak HR: 78 bpm Rest Sys BP: 176 mmHg Peak Sys BP: 198 mmHg Max Pred HR: 146 bpm % Max Pred HR: 53 % Target HR: 124 bpm Max RPP: 15,444 bpm*mmHg Termination Reason: Completed protocol Cardiac Symptoms: Shortness of breath Total Time: 1 min : 0 sec Rest Spence BP: 83 mmHg Peak Spence BP: 78 mmHg Total Dose: 0.4 mg Resting ECG Sinus bradycardia, RBBB, LAFB. Stress ECG No ST changes. Arrhythmias None. Report Signatures
--- NOTE | 2022-06-13 07:57 | ECHO_ITS ---
Patient Info Name: Ruth Lopez Age: 72 years : 1950 Gender: Female Ht: 62 in Wt: 135 lbs BSA: 1.65 m2 HR: 54 bpm BP: 157 / 89 mmHg Technical Quality: Good Exam Date: 06/13/2022 8:25 AM Exam Location: [facility] Pulmonary Patient Status: Outpatient Admit Date: 06/13/2022 Staff Ordering Physician: Jonathan Damon DO System Development Engineer: Jaelyn Mcintosh RDCS Attending Provider: Jonathan Damon DO Referring Physician: Nelson FOX; Exam Type: CA echo doppler color flow Study Info Indications R06.09 - Other forms of dyspnea Complete two-dimensional, color flow and Doppler transthoracic echocardiogram is performed. Summary 1. Complete two-dimensional, color flow and Doppler transthoracic echocardiogram is performed. 2. Left ventricular chamber dimension is normal. 3. Left ventricular systolic function is normal, estimated at 55-60%. 4. The left ventricular diastolic function is grade I diastolic dysfunction. 5. E/e' 7 is not elevated. 6. Global longitudinal strain is normal at -17.5%. 7. Left atrial chamber dimension is mildly enlarged. 8. There is mild aortic valve sclerosis. 9. There is trace aortic valve regurgitation. 10. There is trace mitral valve regurgitation. 11. There is mild tricuspid valve regurgitation. 12. No pulmonary hypertension, estimated pulmonary arterial systolic pressure is 38 mmHg. Left Ventricle E/e' 7 is not elevated. Global longitudinal strain is normal at -17.5%. Left ventricular chamber dimension is normal. Left ventricular systolic function is normal, estimated at 55-60%. The left ventricular diastolic function is grade I diastolic dysfunction. Right Ventricle Right ventricular systolic function is normal and with normal TAPSE 2.0 cm. Right ventricular chamber dimension is normal. Left Atria Left atrial chamber dimension is mildly enlarged. Right Atria Right atrial chamber dimension is normal. Aortic Valve The aortic valve is trileaflet. There is mild aortic valve sclerosis. There is no aortic valve stenosis. There is trace aortic valve regurgitation. Pulmonic Valve There is no pulmonic regurgitation. Mitral Valve There is no mitral valve stenosis. There is trace mitral valve regurgitation. Tricuspid Valve There is mild tricuspid valve regurgitation. No pulmonary hypertension, estimated pulmonary arterial systolic pressure is 38 mmHg. Pericardium/Pleural There is no pericardial effusion. Inferior Vena Cava Normal inferior vena cava with >50% collapse upon inspiration consistent with normal right atrial pressure, 5 mmHg. Aorta The aortic root size at the sinus of Valsalva is normal. Left Ventricular Outflow Tract Name Value Normal LVOT 2D LVOT Diameter 2.0 cm LVOT Doppler LVOT Peak Gradient 5 mmHg LVOT Mean Gradient 2 mmHg LVOT VTI 27 cm LVOT VTI/AV VTI Ratio 0.8 LVOT Stroke Volume 81 ml LVOT CO 4.5 l/min LVOT CI 2.7 l/min/m2
== END 2022-06-13 07:18 | disposition home or self-care (01) ==
PROVIDERS: PCP Emergency Medicine; Visit Provider Internal Medicine Cardiovascular Disease
DX: R07.9 Chest pain, unspecified (principal); R06.09 Other forms of dyspnea; I35.8 Other nonrheumatic aortic valve disorders
CPT/HCPCS: 78452; 93017; 93306; A9502; J2785

== ENCOUNTER → 2022-10-27 12:09 | Outpatient (CLI) | payer OTHER, SELFPAY ==
--- NOTE | ~2022-10-27 | MM_ITS ---
EXAMINATION: MM screening scarlett BI w eri HISTORY: Screening mammogram TECHNIQUE: Craniocaudal and mediolateral oblique 3-D tomosynthesis images were obtained and synthetic 2-D images were generated. CAD analysis was submitted and interpreted. COMPARISON: 10/04/2021, 08/23/2020, 05/09/2019 bilateral screening mammogram examinations BREAST PARENCHYMAL COMPOSITION: The breasts are almost entirely fatty. FINDINGS: Scattered bilateral benign calcifications are again noted. There is no evidence of suspicio us mass, calcification, or architectural distortion to suggest malignancy in either breast. There has been no suspicious interval change. IMPRESSION: 1. No mammographic evidence of malignancy. 2. Recommend routine screening mammography in one year. BI-RADS Category 2: Benign finding(s). Reviewed, dictated and finalized at location A. SANDER
== END ==
PROVIDERS: PCP Emergency Medicine; Visit Provider Emergency Medicine
DX: Z12.31 Encounter for screening mammogram for malignant neoplasm of breast (principal)
CPT/HCPCS: 77063; 77067

== ENCOUNTER → 2023-05-27 12:55 | Outpatient (CLI) | payer OTHER, SELFPAY ==
--- NOTE | ~2023-05-27 | XR_ITS ---
EXAMINATION:XR cervical spine 4-5V DATE: 05/27/2023 14:25 INDICATION: Spinal fusion TECHNIQUE: AP, lateral, lateral swimmers and odontoid views of the cervical spine are provided. COMPARISON: 04/15/2022 FINDINGS: Alignment is normal. The odontoid process is intact. No fracture is identified. There are c hanges of anterior fusion from C5 through C7. There are changes of interval laminectomy and posterior fusion from C5 through C7. There is multilevel severe facet and uncovertebral joint osteoarthritis. Prevertebral soft tissues are normal. IMPRESSION: 1. Changes of interval laminectomy and posterior fusion from C5 through C7. 2. Chronic anterior fusion from C5 through C7 with mild spondylosis. Reviewed, dictated and finalized at location L.
== END ==
DX: Z98.1 Arthrodesis status (principal); M43.22 Fusion of spine, cervical region; M43.02 Spondylolysis, cervical region
CPT/HCPCS: 72050

== ENCOUNTER → 2023-06-29 10:29 | Outpatient (CLI) | payer OTHER, SELFPAY ==
--- NOTE | ~2023-06-29 | XR_ITS ---
EXAM: XR cervical spine 4-5V DATE: 06/29/2023 11:18 HISTORY: Radiculopathy, cervical region . COMPARISON: 05/27/2023. FINDINGS: Anterior and posterior fusion spanning C5-C7. Mild degenerative change at the atlantoaxial joint. Trace anterolisthesis at C3-4. The level moderate facet arthropathy. Multilevel mild degenerat richie disc change. IMPRESSION: Uncomplicated appearing anterior and posterior C5-C7 fusion. Reviewed, dictated and finalized at location K.
--- NOTE | ~2023-06-29 | XR_ITS ---
EXAM: XR lumbar spine 2-3V DATE: 06/29/2023 11:17 HISTORY: Radiculopathy, lumbar region . COMPARISON: 11/10/2021. FINDINGS: Cholecystectomy clips. Aortic calcifications without evident aneurysm 5 nonrib-bearing lumb ar-type vertebral bodies. Pedicles intact. Multilevel grade 1 listheses. Mild and moderate degrees of lumbar degenerative disc disease. Severe lower lumbar facet sclerosis and hypertrophy. No fracture o r dislocation. IMPRESSION: Multilevel grade 1 lumbar listheses. Multilevel mild-moderate degenerative disc disease. Multilevel severe lower lumbar facet arthropathy. Reviewed, dictated and finalized at location K.
== END ==
PROVIDERS: PCP Pain Medicine Interventional Pain Medicine; Visit Provider Pain Medicine Interventional Pain Medicine
DX: M54.17 Radiculopathy, lumbosacral region (principal); M54.12 Radiculopathy, cervical region; M47.896 Other spondylosis, lumbar region; M51.36 Other intervertebral disc degeneration, lumbar region; M43.16 Spondylolisthesis, lumbar region; M43.22 Fusion of spine, cervical region
CPT/HCPCS: 72050; 72100

== ENCOUNTER → 2023-07-20 10:30 | Outpatient (CLI) | payer OTHER, SELFPAY ==
--- NOTE | ~2023-07-20 | XR_ITS ---
XR_[id number]_CR DATE: 07/20/2023 10:55 INDICATION: Right knee pain TECHNIQUE: Weightbearing AP and lateral views COMPARISON: None FINDINGS: Small suprapatellar knee joint effusion. Minimal periarticular spurring of the patella. Kne e joint spaces are well preserved. No radiopaque intra-articular loose body or chondrocalcinosis. No fracture, dislocation, periosteal reaction or bone destruction is noted. There is extensive calcification of the femoral, popliteal and trifurcation arteries. IMPRESSION: Small suprapatellar knee joint effusion Mild patellofemoral osteoarthritis Reviewed, dictated and finalized at Location A. Reviewed, dictated and finalized at location B.
== END ==
PROVIDERS: PCP Emergency Medicine; Visit Provider Emergency Medicine
DX: M17.11 Unilateral primary osteoarthritis, right knee (principal); M25.461 Effusion, right knee
CPT/HCPCS: 73560

== ENCOUNTER → 2023-10-26 09:45 | Outpatient (CLI) | payer OTHER, SELFPAY ==
--- NOTE | ~2023-10-26 | DEXA_ITS ---
Bone Density Report Name: STORM LOZANO Age: 73 Sex: Female Ethnicity: White Date of : 1950 Indication: postmenopausal; screening for osteoporosis; height loss; hysterectomy; Referring Provider: RENEE ANGULO Study: Bone densitometry was performed. Exam Date: October 26, 2023 Accession number: [id number] Bone Density: Region BMD T-score Z-score Classification AP Spine (L1-L4) 1.166 1.1 3.5 Normal Femoral Neck (Left) 0.811 -0.3 1.8 Normal Total Hip (Left) 0.905 -0.3 1.5 Normal Femoral Neck (Right) 0.826 -0.2 1.9 Normal Total Hip (Right) 0.964 0.2 2.0 Normal Total Hip Mean 0.935 -0.1 1.8 Normal World Health Organization criteria for BMD impression classify patients as: Normal (T-score at or above -1.0), Osteopenia (T-score between -1.0 and -2.5), or Osteoporosis (T-score at or below -2.5). 10-year Fracture Risk: FRAX not reported because: All T-scores for Spine Total, Hip Total, Femoral Neck at or above -1.0 Previous Exams: Region Exam Age BMD T-score BMD Change BMD Change Date g/cm2 vs Baseline vs Previous AP Spine(L1-L4) 10/26/2023 73 1.166 1.1 -0.002 -0.040* 03/09/2017 67 1.206 1.4 0.038* 0.038* 03/14/2013 63 1.168 1.1 Total Hip(Left) 10/26/2023 73 0.905 -0.3 -0.101* -0.040* 05/09/2019 69 0.944 0.0 -0.062* -0.035* 03/09/2017 67 0.979 0.3 -0.027* -0.027* 03/14/2013 63 1.006 0.5 Total Hip(Right) 10/26/2023 73 0.964 0.2 -0.082* -0.013 05/09/2019 69 0.977 0.3 -0.069* -0.081* 03/09/2017 67 1.058 1.0 0.012 0.012 03/14/2013 63 1.046 0.9 *Denotes significance at 95% confidence level, LSC for AP Spine = 0.022 g/cm2, LSC for Total Hip = 0.027 g/cm2 Clinical Information Provided by Patient: Has used the following medications: Vitamin D, Calcium Has the following medical conditions: Hysterectomy Patient maximum height was 63 Menopause Age: 48 No regular weight bearing exercise Does not regularly consume dairy products Drinks caffeinated beverages Onset of menses at age 10 Number of children 4 Impression: The patient has normal bone mass. The BMD for the AP Spine(L1-L4) decreased, changing by -0.040 since the last DXA exam. The BMD for the Total Hip(Left) decreased, changing by -0.040 since the last DXA exam. Discussion: BONE DENSITY IS ABOVE
== END ==
PROVIDERS: PCP Emergency Medicine; Visit Provider Emergency Medicine
DX: Z78.0 Asymptomatic menopausal state (principal)
CPT/HCPCS: 77080

== ENCOUNTER 2024-02-17 10:51 | Outpatient (CLI) | payer OTHER, SELFPAY ==
--- NOTE | ~2024-02-17 | MM_ITS ---
EXAMINATION: MM screening scarlett BI w eri HISTORY: Screening TECHNIQUE: Craniocaudal and mediolateral oblique 3-D tomosynthesis images were obtained and synthetic 2-D images were generated. CAD analysis was submitted and interpreted. COMPARISON: Comparison to multiple prior studies sequentially, with oldest reviewed study dated 03/09. BREAST PARENCHYMAL COMPOSITION: Not dense: There are scattered areas of fibroglandular density. FINDINGS: There is no evidence of suspicious mass, calcification, or architectural distortion to sugg est malignancy in either breast. There has been no suspicious interval change. IMPRESSION: 1. No mammographic evidence of malignancy. 2. Recommend routine screening mammography in one year. BI-RADS Category 1: Negative Reviewed, dictated and finalized at location B.
== END 2024-02-17 10:52 ==
PROVIDERS: PCP Emergency Medicine; Visit Provider Emergency Medicine
DX: Z12.31 Encounter for screening mammogram for malignant neoplasm of breast (principal)
CPT/HCPCS: 77063; 77067

== ENCOUNTER 2024-05-16 14:38 | Outpatient (CLI) | payer OTHER, SELFPAY ==
--- NOTE | ~2024-05-16 | CT_ITS ---
EXAMINATION: CT brain wo con DATE: 05/16/2024 14:53 INDICATION: Headache, unspecified. TECHNIQUE: Computed tomography (CT) of the head was performed without intravenous contrast. The mA wa s adjusted according to patient size. Iterative reconstruction technique was employed. The dose-lengt h product was 599.57 mGy-cm. COMPARISON: Head CT 02/15/2021 FINDINGS: There are scattered areas of low attenuation in the cerebral white matter. There is no intr acranial hemorrhage, acute infarction, or abnormal intracranial mass lesion. The ventricles are sara l in size. There are likely changes of ocular lens replacement surgeries. The paranasal sinuses are c lear. The mastoid air cells are normal. IMPRESSION: 1. Moderate nonspecific cerebral white matter disease, which likely represents chronic small vessel i schemic disease. Reviewed, dictated and finalized at location A. IMPRESSION: 1. Moderate nonspecific cerebral white matter disease, which likely represents chronic small vessel ischemic disease.
== END 2024-05-16 14:39 ==
LOC: MICIMG 14:39
PROVIDERS: PCP Emergency Medicine; Visit Provider Emergency Medicine
DX: R51.9 Headache, unspecified (principal); R90.82 White matter disease, unspecified
CPT/HCPCS: 70450

== ENCOUNTER 2024-07-13 10:33 | Day surgery (SDC) | payer OTHER, SELFPAY ==
[2024-06-21 10:34] VITALS: BMI 23.8
[2024-06-24 13:52] VITALS: BMI 22.9
--- NOTE | 2024-07-13 07:00 | WPDANESEPPF ---
Anes - Initial Pre Proc Eval Procedure: Operation Date: 07/13/24 13:15 Proposed Procedures p Diagnostic Colonoscopy - Oneil Olson MD Date/Time: 07/13/24 07:00 Surgeon: Oneil Olson MD Pre Op Diagnosis: History of Polyps Patient Data Age: 74 Gender: F Height: 1.57 m Weight: 57 kg Allergies Allergy/AdvReac Type Severity Reaction Status Date / Time No Known Allergies Allergy Unknown Verified 07/13/24 11:04 Home Medications Medication Instructions Recorded Confirmed Type oxybutynin chloride 5 mg 5 mg PO DAILY 02/15/21 07/13/24 History tablet,extended release 24 hr lactobacillus combination no.8 3 1 cell PO DAILY 04/18/21 07/13/24 History billion cell capsule cholecalciferol (vitamin D3) 25 2,000 unit PO DAILY 12/25/21 07/13/24 History mcg (1,000 unit) capsule zinc 50 mg tablet 50 mg PO DAILY 02/03/22 07/13/24 History mupirocin 2 % topical ointment 1 applic topical BID #22 grams 09/07/23 07/13/24 Rx amlodipine 10 mg tablet 10 mg PO DAILY 06/24/24 07/13/24 History lisinopril 40 mg tablet 40 mg PO DAILY 06/24/24 07/13/24 History methocarbamol 500 mg tablet 500 mg PO PRN pain 06/24/24 07/13/24 History naloxegol 25 mg tablet (Movantik) 25 mg PO DAILY 06/24/24 07/13/24 History nitrofurantoin macrocrystal 50 mg 50 mg DAILY 06/24/24 07/13/24 History capsule pantoprazole 40 mg tablet,delayed 40 mg PO DAILY 06/24/24 07/13/24 History release sertraline 100 mg tablet (Zoloft) 100 mg PO DAILY 06/24/24 07/13/24 History Patient hx anesthesia problems: none Family hx anesthesia problems: none Results Review: All pre-operative results and documents have been reviewed as part of the pre-operative evaluation. [facility], [facility] Past Medical History Medical History Abnormal stress test Balance disorder Blurry vision Cervical radiculopathy Chronic maxillary sinusitis Colon polyp Current moderate episode of major depressive disorder without prior episode Depression Encounter for screening for cardiovascular disorders Essential hypertension Fatty liver disease, nonalcoholic GERD (gastroesophageal reflux disease) GERD without esophagitis Headaches due to old head injury HTN (hypertension) Knee sprain Murmur, cardiac Nasal septal deviation Oropharyngeal dysphagia Right knee pain Sciatica of left side Unspecified injury of head, sequela Surgical History Surgical History History of fusion of cervical spine History of spinal surgery Anastacio Family History Family History Mother Acute myocardial infarction, Onset Age: 68 Father Cerebrovascular accident Sibling Cerebrovascular accident Family history of malignant neoplasm Family history of heart disease in male family member before age 55 Other Diabetes mellitus Family history of gastrointestinal disorder Hypertension Social History Social History Smoking status: Never smoker Alcohol intake: never Substance use: never Substance use type: does not use Current Housing: Decline to Answer Concerned About Future Housing: Decline to Answer Difficulty Paying Gas/Electric Bills: Decline to Answer Difficulty Paying for Meds: Decline to Answer Currently Unemployed: Decline to Answer Education: Decline to Answer Difficulty w/ Childcare or Family Care: Decline to Answer Living arrangements: with family Gender identity (if verbalized by the patient): Female Spiritual care concerns: No Anes - Eval Final PreProcedure Day of Procedure 07/13/24 07:00 Patient weight: normal Heart: regular rate and rhythm Lungs: clear to auscultation and normal air movement Airway: Mallampati scale class II Neurological: alert and oriented Last oral intake: >/= 8 hours ASA classification: II
[2024-07-13 11:05] VITALS: BP 135/74; PULSE 59; RESP 16; TEMP 37.1; O2SAT 98
[2024-07-13] MEDS: LACTATED RINGERS 1,000 ML 150 ML IV CONT (11:10)
--- NOTE | 2024-07-13 12:06 | PM.HPGS ---
History of Present Illness History of Present Illness Consent: Risks, benefits, and alternatives have been discussed and questions answered. Patient agrees to proceed with procedure. 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 Patient has a history of colon polyps. Most recent colonoscopy 2020 revealed several adenomatous colon polyps. Patient states her bowel habits currently are normal. She denies abdominal pain. She has had no bleeding. Patient referred today for follow-up screening colonoscopy. Review of Systems Review of Systems: All systems reviewed & are unremarkable except as noted in HPI and below PMFSH Past Medical History Medical History Abnormal stress test Balance disorder Blurry vision Cervical radiculopathy Chronic maxillary sinusitis Colon polyp Current moderate episode of major depressive disorder without prior episode Depression Encounter for screening for cardiovascular disorders Essential hypertension Fatty liver disease, nonalcoholic GERD (gastroesophageal reflux disease) GERD without esophagitis Headaches due to old head injury HTN (hypertension) Knee sprain Murmur, cardiac Nasal septal deviation Oropharyngeal dysphagia Right knee pain Sciatica of left side Unspecified injury of head, sequela Surgical History Surgical History History of fusion of cervical spine History of spinal surgery 2021- [facility] Family History Family History Mother Acute myocardial infarction, Onset Age: 68 Father Cerebrovascular accident Sibling Cerebrovascular accident Family history of malignant neoplasm Family history of heart disease in male family member before age 55 Other Diabetes mellitus Family history of gastrointestinal disorder Hypertension Social History Social History Smoking status: Never smoker Alcohol intake: never Substance use: never Substance use type: does not use Current Housing: Decline to Answer Concerned About Future Housing: Decline to Answer Difficulty Paying Gas/Electric Bills: Decline to Answer Difficulty Paying for Meds: Decline to Answer Currently Unemployed: Decline to Answer Education: Decline to Answer Difficulty w/ Childcare or Family Care: Decline to Answer Living arrangements: with family Gender identity (if verbalized by the patient): Female Spiritual care concerns: No Meds Home Medications and Allergies Home Medications Medication Instructions Recorded Confirmed Type oxybutynin chloride 5 mg 5 mg PO DAILY 02/15/21 07/13/24 History tablet,extended release 24 hr lactobacillus combination no.8 3 1 cell PO DAILY 04/18/21 07/13/24 History billion cell capsule cholecalciferol (vitamin D3) 25 2,000 unit PO DAILY 12/25/21 07/13/24 History mcg (1,000 unit) capsule zinc 50 mg tablet 50 mg PO DAILY 02/03/22 07/13/24 History mupirocin 2 % topical ointment 1 applic topical BID #22 grams 09/07/23 07/13/24 Rx amlodipine 10 mg tablet 10 mg PO DAILY 06/24/24 07/13/24 History lisinopril 40 mg tablet 40 mg PO DAILY 06/24/24 07/13/24 History methocarbamol 500 mg tablet 500 mg PO PRN pain 06/24/24 07/13/24 History naloxegol 25 mg tablet (Movantik) 25 mg PO DAILY 06/24/24 07/13/24 History nitrofurantoin macrocrystal 50 mg 50 mg DAILY 06/24/24 07/13/24 History capsule pantoprazole 40 mg tablet,delayed 40 mg PO DAILY 06/24/24 07/13/24 History release sertraline 100 mg tablet (Zoloft) 100 mg PO DAILY 06/24/24 07/13/24 History Allergies Allergy/AdvReac Type Severity Reaction Status Date / Time No Known Allergies Allergy Unknown Verified 07/13/24 11:04 Vital Signs Vital Signs - 24 hr 07/13/24 11:05 Temperature 98.8 F Pulse Rate 59 L Re
[2024-07-13 13:43] VITALS: BP 120/58; PULSE 54; RESP 15; O2SAT 96
--- NOTE | 2024-07-13 13:48 | WPDANESPN ---
Anes - Prog Note Post-Op Date/Time: 07/13/24 13:48 Cardiovascular status: normal Respiratory status: normal Airway patency: baseline Mental status: baseline Post-Op hydration status: normal Vital Signs: Last Vital Signs Temp 37.1 C 07/13/24 11:05 Pulse 59 L 07/13/24 11:05 Resp 16 07/13/24 11:05 BP 135/74 07/13/24 11:05 Pulse Ox 98 07/13/24 11:05 O2 Del Method Room Air 07/13/24 11:05 Pain Score (VAS): 0 I/O: Intake & Output 07/12/24 07/13/24 07/13/24 23:59 07:59 15:59 Intake Total 900 Balance 900 Post-procedural complaints: none Patient Feedback: Patient satisfied with anesthetic care. Other Findings: Patient vital signs back to baseline. Patient denies nausea and vomiting. Patient's pain under control. Patient OK for discharge.
[2024-07-13 13:53] VITALS: BP 111/81; PULSE 52; RESP 15; O2SAT 95
[2024-07-13 14:03] VITALS: BP 125/63; PULSE 51; RESP 14; O2SAT 98
== END 2024-07-13 14:17 | disposition home or self-care (01) ==
PROVIDERS: PCP Emergency Medicine; Visit Provider Internal Medicine Gastroenterology
PROC: 0DJD8ZZ Inspection of Lower Intestinal Tract, Via Natural or Artificial Opening Endoscopic (ICD-10-PCS; CPT 45378; principal; 2024-07-13 13:15)
DX: Z86.0100 Personal history of colon polyps, unspecified (principal); K64.8 Other hemorrhoids
CPT/HCPCS: 45378

== ENCOUNTER 2024-08-29 12:06 | Outpatient (CLI) | payer OTHER, SELFPAY ==
--- NOTE | ~2024-08-29 | XR_ITS ---
Cervical Spine: AP, lateral, oblique, open-mouth views Clinical History: Pain Findings: The normal lordotic curve is maintained. There is anterior and posterior fusion from C5 to C7. There is mild degenerative change in the upper cervical spine. There is moderate to advanced face t arthropathy in the visualized cervical spine. Pre-vertebral soft tissues are unremarkable. Impression: Postoperative change from C5 to C7, as above. Moderate to advanced degenerative spondylosis, as above. Reviewed, dictated and finalized at location . R SUPERVISOR Impression: Postoperative change from C5 to C7, as above. Moderate to advanced degenerative spondylosis, as above.
--- NOTE | ~2024-08-29 | XR_ITS ---
Lumbosacral Spine: AP and lateral views Clinical History: Pain Findings: The normal lordotic curve is maintained. No fracture seen. There is 5 mm anterolisthesis of L3 over L4. There is 6 mm anterolisthesis of L4-L5. There is advanced facet arthropathy at L3-L4, L4 -L5, and L5-S1. There are mild to moderate degenerative disc changes. The sacroiliac joints are sara lly outlined. Impression: Moderate degenerative spondylosis, as above. 5 mm anterolisthesis of L3 over L4. 6 mm anterolisthesis of L4 over L5. Reviewed, dictated and finalized at location M. MENTATION COORDINATOR Impression: Moderate degenerative spondylosis, as above. 5 mm anterolisthesis of L3 over L4. 6 mm anterolisthesis of L4 over L5.
--- NOTE | ~2024-08-29 | XR_ITS ---
Thoracic spine: Clinical Indication: Thoracic radiculopathy AP and lateral views were performed. Probable mild compression deformities of T8, T9, and T11. There is moderate degenerative disc narrowi ng throughout the mid thoracic spine. Paravertebral soft tissues appear normal. Impression: Probable mild compression deformities of T8, T9, and T11. Degenerative change, as above. Reviewed, dictated and finalized at location . STER PIANO ACTION Impression: Probable mild compression deformities of T8, T9, and T11. Degenerative change, as above.
== END 2024-08-29 12:07 | disposition home or self-care (01) ==
PROVIDERS: PCP Emergency Medicine; Visit Provider Pain Medicine Interventional Pain Medicine
DX: S22.060A Wedge compression fracture of T7-T8 vertebra, initial encounter for closed fracture (principal); S22.070A Wedge compression fracture of T9-T10 vertebra, initial encounter for closed fracture; S22.080A Wedge compression fracture of T11-T12 vertebra, initial encounter for closed fracture; X58.XXXA Exposure to other specified factors, initial encounter; M51.34 Other intervertebral disc degeneration, thoracic region; M43.22 Fusion of spine, cervical region; M47.812 Spondylosis without myelopathy or radiculopathy, cervical region
CPT/HCPCS: 72050; 72072; 72100

== ENCOUNTER 2024-10-11 09:37 | Outpatient (CLI) | payer OTHER, SELFPAY ==
--- NOTE | ~2024-10-11 | US_ITS ---
EXAMINATION: US carotid duplex BI DATE: 10/11/2024 12:05 INDICATION: Cerebrovascular disease, unspecified. TECHNIQUE: Grayscale, color Doppler, and pulsed Doppler images of the cervical carotid arteries were obtained. The degree of vessel stenosis is placed in one of the following categories: normal, <50%, 5 0-69%, >=70% but less than near-occlusion, near-occlusion, or total occlusion. Note that percent sten osis relative to normal distal artery lumen diameter is indirectly measured from velocity measurement s as described by Jacob, et al. Radiology 2003; 229:340-346. COMPARISON: None. FINDINGS: RIGHT: The right common carotid artery (CCA) peak systolic velocity (PSV) is 82 cm/s. The right internal car otid artery (ICA) PSV is 77 cm/s. The right ICA end-diastolic velocity (EDV) is 16 cm/s. The right IC A/CCA PSV ratio is 0.9. Grayscale and color Doppler images yield an estimate of <50% diameter reducti on from plaque in the ICA. There is antegrade flow in the right vertebral artery. LEFT: The left CCA PSV is 85 cm/s. The left ICA PSV is 76 cm/s. The left ICA EDV is 20 cm/s. The left ICA/C CA PSV ratio is 0.9. Grayscale and color Doppler images yield an estimate of <50% diameter reduction from plaque in the ICA. There is antegrade flow in the left vertebral artery. IMPRESSION: 1. <50% stenosis in the right internal carotid artery. 2. <50% stenosis in the left internal carotid artery. Reviewed, dictated and finalized at location B. AL RESOLUTION SPECIALIST
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
--- OUTSIDE RECORDS SUMMARY | 2024-10-13 16:54 | XMS_ITS | CONTINUITY OF CARE DOCUMENT ---
Author Name carie darnell Address Unknown Organization [facility] Address [address] [place] [address] Phone [phone] Care Team Providers Care Maintenance Journeyman Name Role Phone Sohail MERRILL, Dania Unavailable MANDEEP BUI MD Unavailable MICHAEL MARTINEZ DO Unavailable [phone] ENCOUNTERS Date Type Provider Location Encounter Diagnosis - In-person encounter Office Visit Eriberto Candelario [facility] INSURANCE PROVIDERS Payer name Policy type / Coverage type Harpreet red libertarian ID [facility] [id number]
== END 2024-10-11 09:38 | disposition home or self-care (01) ==
PROVIDERS: PCP Emergency Medicine; Visit Provider Psychiatry & Neurology Neurology
DX: I67.82 Cerebral ischemia (principal); I65.23 Occlusion and stenosis of bilateral carotid arteries; G31.89 Other specified degenerative diseases of nervous system; I10 Essential (primary) hypertension; M54.12 Radiculopathy, cervical region; M54.2 Cervicalgia; Z87.828 Personal history of other (healed) physical injury and trauma
CPT/HCPCS: 70551; 93880

== ENCOUNTER 2025-03-07 11:20 | Outpatient (CLI) | payer OTHER, SELFPAY ==
--- NOTE | ~2025-03-07 | XR_ITS ---
Clinical Indication: Wheezing PA and lateral views of the chest: Comparison: 02/18/2014 Findings: The lungs are clear, without evidence of focal consolidation or pleural effusion. Cardiome diastinal silhouette is within normal limits. Bones and soft tissues are unremarkable. Impression: Normal chest. Reviewed, dictated and finalized at [facility]. Impression: Normal chest.
== END 2025-03-07 11:21 | disposition home or self-care (01) ==
LOC: MICIMG 11:22
PROVIDERS: PCP Emergency Medicine; Visit Provider Emergency Medicine
DX: R06.2 Wheezing (principal)
CPT/HCPCS: 71046

== ENCOUNTER 2025-03-21 07:12 | Outpatient (CLI) | payer OTHER, SELFPAY ==
--- NOTE | ~2025-03-21 | US_ITS ---
EXAMINATION: US thyroid DATE: 03/21/2025 08:15 INDICATION: Hypothyroidism TECHNIQUE: Multiple ultrasound images of the thyroid were obtained. COMPARISON: None. FINDINGS: The right thyroid lobe measures 4.6 x 1.4 x 1.2 cm. The left thyroid lobe measures 3.5 x 1.5 x 1.4 c m. 7 mm mixed solid and cystic isoechoic nodule with ill-defined margins and without echogenic foci in the right thyroid lobe (TI-RADS 2, not suspicious, no FNA recommended). There is normal echotextur e, echogenicity and vascular flow throughout the remainder of the thyroid gland. IMPRESSION: 1. Likely benign 7 mm Ti Rads 2 right thyroid nodule. Otherwise unremarkable thyroid ultrasound. Reviewed, dictated and finalized at location B. IMPRESSION: 1. Likely benign 7 mm Ti Rads 2 right thyroid nodule. Otherwise unremarkable th yroid ultrasound.
== END 2025-03-21 07:13 | disposition home or self-care (01) ==
LOC: MICIMG 07:13
PROVIDERS: PCP Emergency Medicine; Visit Provider Emergency Medicine
DX: E03.9 Hypothyroidism, unspecified (principal)
CPT/HCPCS: 76536

== ENCOUNTER 2025-04-14 08:19 | Outpatient (CLI) | payer OTHER, SELFPAY ==
--- OUTSIDE RECORDS SUMMARY | 2025-04-14 08:24 | XMS_ITS | Clinical Summary ---
Author Organization [employer] Address [address] [place] [phone] Care Team Providers Care Laboratory Specialist Name Role Phone Julio C Lyle MD Primary Care Provider Allergies No known active allergies Medications sertraline (ZOLOFT) 100 mg tablet Take 100 mg by mouth daily at bedtime. 2 Active pantoprazole (PROTONIX) 40 mg Tablet, Delayed Release (E.C.) Take 40 mg by mouth 2 times daily. 2 Active nystatin (MYCOSTATIN) 100,000 unit/mL suspension daily at bedtime. 2 Active oxybutynin chloride (DITROPAN XL) 5 mg Extended Release 24 hour tablet 5 mg daily at bedtime. 2 Active nitrofurantoin macrocrystaL (MACRODANTIN) 50 mg capsule Take 50 mg by mouth daily. 2 Active lisinopriL (PRINIVIL) 40 mg tablet Take 40 mg by mouth daily. 2 Active cholecalciferol, Vitamin D3, (VITAMIN D3) 25 mcg (1,000 unit) Capsule Take 1,000 Units by mouth daily. Active amLODIPine (NORVASC) 10 mg tablet Take 10 mg by mouth daily at bedtime. 2 Active acetaminophen-cod eine (TYLENOL #4) 300-60 mg tablet Take 1 Tablet by mouth every 8 hours as needed for Pain. 2 Active L.acid/L.casei/B. bif/B.flaquito/FOS (PROBIOTIC BLEND ORAL) Take 1 Capsule by mouth daily with supper. Active cyanocobalamin (VITAMIN B-12) 100 mcg tablet Take 100 mcg by mouth daily. Active methocarbamoL (ROBAXIN) 500 mg tablet Take 500 mg by mouth 2 times daily as needed. Active Active Problems Problem Noted Date Diagnosed Date S/P cervical spinal fusion 07/10/2022 Primary hypertension 07/10/2022 History of excision of yessenia a of cervical vertebra for decompression of spinal cord 07/10/2022 Overactive bladder 07/10/2022 Gastroesophageal reflux disease without esophagi tis 07/10/2022 Uncontrolled pain 07/10/2022 Neck pain 03/17/2022 Cervical spondylosis with myelopathy 01/13/2022 Resolved Problems Problem Noted Date Diagnosed Date Resolved Date Pseudoarthrosis of cervical spine 03/17/2022 08/25/2022 Immunizations Immunization Administration Dates Next Due (PREVNAR 20)(6 WKS UP) PNEUM OCOCCAL CONJUGATE VACCINE 20-VALENT (PCV20), POLYSACCHARIDE [id number] CONJUGATE, ADJUVANT 0.5 ML (PF) IM 07/10/2022(Deferred: - Patient reports already receiving vaccine this season) Family History Medical History Relation Name Comments Stroke Father Heart Attack Mother Relation Name Status Comments Father Mother Social History Tobacco Use Types Packs/Day Years Used Date Smoking Tobacco: Never Smokeless Tobacco: Never Tobacco Cessation:Counseling Given: No Alcohol Use Standard Drinks/Week Comments Never 0 (1 standard drink = 0.6 oz pur e alcohol) Comments No Sex and Gender Information Value Date Recorded Sex Assigned at Not on file Legal Sex Female 10:41 AM CDT Gender Identity Not on file Sexual Orientation Not on file Last Filed Vital Signs Vital Sign Reading Time Taken Comments Blood Pressure 118/68 12/12/2022 9:55 AM CDT lef t arm Pulse 59 10/06/2022 10:08 AM SECURITY OPERATIONS CENTER OPERATOR Temperature 36.8 C (98.3 F) 07/12/2022 7:35 AM CDT Respiratory Rate 18 07/12/2022 7:35 AM CDT Oxygen Saturation 96% 07/12/2022 7:35 AM CDT Inhaled Oxygen Concentration - - Weight 61.7 kg (136 lb) 06/29/2023 2:06 PM CDT Height 157.5 cm (5' 2) 12/12/2022 9:55 AM CDT Body Mass Index 24.87 12/12/2022 9:55 AM CDT Plan of Treatment Health Maintenance Due Date Last Done Comments DTAP/TDAP/TD VACCINES (1 - Tdap) 1967 PNEUMOCOCCAL VACCINE 50+ YEARS (1 of 1 - PCV) 03/04/19 98 ZOSTER VACCINE (1 of 2) 1998 OSTEOPOROSIS SCREENING 2013 RSV VACCINE (60+ or ) (1 - 1-dose 75+ series) 2023 INFLUENZA VACCINE (#1) 2025 Medical Devices Implanted Type Area Accounting Intern Device Identifier Shelf Expiration Date Model / Serial / Lot Hemostatic Surgiflo 8ml W/ Thrombin 2993 - [id number] Implanted:Qty: 1 on 07/09/2022 by Bib Bunch MD at [facility] Hemostatic N/A: Neck [employer] 12/20/2023 2994 / / [id number] Hemostatic Surgifoam Sz12-7 1971 - [id number] Implanted:Qty: 1 on 07/09/2022 by Bib Bunch MD at [facility] Hemostatic N/A: Neck [employer]- [employer] 12/19/20251971 / / [id number] Mahamed Infinity 3.5x50mm Pre-Cut [id number] - Sna Implanted:Qty: 2 on 07/09/2022 by Bib Bunch MD at [facility] Mahamed N/A: Neck [employer] SOFAMOR DANEK [id number] / NA / NA Description:[place] [id number] 70 7 Sterilization Date 06/29/2022 Screw Infinity 3.5x12mm Mas [id number] - Sna Implanted:Qty: 2 on 07/09/2022 by Bib Bunch MD at [facility] Screw N/A: Neck [employer] [id number] / NA / [place] [id number] 70 7 Sterilization Date 06/29/2022 CHANDU REQ#[id number] Screw Infinity 3.5x14mm Mas [id number] - Sna Implanted:Qty: 3 on 07/09/2022 by Bib Bunch MD at [facility] Screw N/A: Neck [employer] SOFAMOR [employer]ANEK [id number] / NA / [place] [id number] 70 7 Sterilization Date 06/29/2022 Screw Infinity 3.5x16mm Mas [id number] - Sna Implanted:Qty: 1 on 07/09/2022 by Bib Bunch MD at [facility] Screw N/A: Neck [employer]OR [employer] [id number] / NA / [place] [id number] 70 7 Sterilization Date 06/29/2022 Set Screw Infinity Oc M6 [id number] - Sna Implanted:Qty: 6 on 07/09/2022 by Bib Bunch MD at [facility] Screw N/A: Neck [employer] SO[employer]OR [employer]K [id number] / NA / [place] [id number] 70 7 Sterilization Date 06/29/2022 Allograft Magn[employer] [id number] - [id number] Implanted:Qty: 1 on 07/09/2022 by Bib Bunch MD at [facility] Tissue N/A: Neck [employer] 01/29/2024 [id number] / [id number] / Description: Requisition: [id number] Insurance ESSENCE O MCR RX MEDIMPACT Member Subscriber Plan / Payer (Ef fective 2014-Present) Name:Ruth Lopez Relation to Subscriber:Self Name:Antonella Lopezna Payer ID:Not on file Group ID:[id number] Type:RX Medicare Part D Address: [address] Advance Directives For more information, please contact: [phone] * Full Code (Latest Code Status on File) Date Activated Date Inactivated Comments 07/09/2022 5:51 PM 07/12/2022 3:10 PM * Full Code Date Activated Date Inactivated Comments 07/09/2022 3:35 PM 07/09/2022 5:51 PM Care Teams Laboratory Specialist Relationship Specialty Start Date End Date Julio C Lyle MD [address] [place] [id number] PCP - General Internal Medicine 01/07/22
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
--- OUTSIDE RECORDS SUMMARY | 2025-04-14 08:24 | XMS_ITS | Encounter Summary ---
Author Organization [facility] Address [address] [place] [address] Care Team Providers Care Handle Bar Assembler Name Role Phone Julio C Lyle MD Primary Care Provider [phone] Encounter Details Date Type Department Care Team (Late st Contact Info) Description 07/09/2022 Telephone [facility] Admitting [address] [place] [address] [place] [address] [address] Social History Tobacco Use Types Packs/Day Years [...] on filedocumented in this encounter Care Teams Handle Bar Assembler Relationship Specialty Start Date End Date Julio C Lyle MD [address] [place] [phone] PCP - General Internal Medicine 01/07/22 documented as of this encounter
--- NOTE | 2025-04-14 08:33 | EST_ITS ---
Patient Info Name: Ruth Lopez Age: 75 years : 1950 Gender: Female Ht: 62 in Wt: 125 lbs BSA: 1.58 m2 HR: 58 bpm BP: 145 / 76 mmHg Exam Date: 04/14/2025 8:39 AM Patient Status: O Admit Date: 04/14/2025 Exam Type: CA stress echo Treadmill exercise stress echocardiogram is performed. Staff Attending Provider: Julio C Lyle MD Exercise Technologist: Michelle Velasquez Exercise Physician: Jonathan Damon DO Summary 1. 1. Inconclusive Sesar exercise stress test for ischemic ST changes by ECG criteria as she achieved only 68% MPHR for age group. 2. 2. Poor functional capacity, achieving 3.4 METs of workload. 3. 3. Appropriate HR response to exercise. 4. 4. Appropriate HR recovery at 1 minute post exercise. 5. 5. Baseline hypertension. 6. 6. Negative stress echocardiogram for ischemia by wall motion analysis at heart rate achieved. 7. 7. Patient informed of the above results. Stress Echo Findings Left Ventricle Appropriate increase in LV endocardial thickening with systole. Appropriate augmentation of contractility with systole. No wall motion abnormality. Left Ventricle Normal LV systolic function, no wall motion abnormality. Protocol: Sesar Stress ECG Details Stage: REST Duration (min): 17 min : 0 sec Speed (mph): 0.0 Grade (%): 0 HR (bpm): 67 SBP (mmHg): 145 DBP (mmHg): 76 METS: --- Stage: STAGE 1 Duration (min): 1 min : 30 sec Speed (mph): 0.0 Grade (%): 0 HR (bpm): 94 SBP (mmHg): 145 DBP (mmHg): 76 METS: --- Stage: RECOVERY Duration (min): 4 min : 30 sec Speed (mph): 0.0 Grade (%): 0 HR (bpm): 57 SBP (mmHg): 168 DBP (mmHg): 86 METS: --- Stage: RECOVERY Duration (min): 0 min : 30 sec Speed (mph): 0.0 Grade (%): 0 HR (bpm): 92 SBP (mmHg): 145 DBP (mmHg): 76 METS: --- Stage: RECOVERY Duration (min): 4 min : 50 sec Speed (mph): 0.0 Grade (%): 0 HR (bpm): 55 SBP (mmHg): 156 DBP (mmHg): 83 METS: --- Stage: RECOVERY Duration (min): 3 min : 30 sec Speed (mph): 0.0 Grade (%): 0 HR (bpm): 61 SBP (mmHg): 168 DBP (mmHg): 86 METS: --- Stage: RECOVERY Duration (min): 2 min : 30 sec Speed (mph): 0.0 Grade (%): 0 HR (bpm): 62 SBP (mmHg): 145 DBP (mmHg): 76 METS: --- Stage: STAGE 1 Duration (min): 1 min : 0 sec Speed (mph): 1.7 Grade (%): 10 HR (bpm): 87 SBP (mmHg): 145 DBP (mmHg): 76 METS: --- Stage: REST Duration (min): 1 min : 51 sec Speed (mph): 0.0 Grade (%): 0 HR (bpm): 58 SBP (mmHg): 145 DBP (mmHg): 76 METS: --- Stage: RECOVERY Duration (min): 1 min : 30 sec Speed (mph): 0.0 Grade (%): 0 HR (bpm): 70 SBP (mmHg): 145 DBP (mmHg): 76 METS: --- Rest HR: 67 bpm Peak HR: 97 bpm Rest Sys BP: 145 mmHg Peak Sys BP: 168 mmHg Max Pred HR: 143 bpm % Max Pred HR: 68 % Target HR: 122 bpm Max RPP: 16,296 bpm*mmHg Camargo Score: -5 Termination Reason: Maximal effort/unable to continue Cardiac Symptoms: Fatigue, Dyspnea Max ST Seg Deviation: 1 mm Total Time: 1 min : 30 sec Rest Spence BP: 76 mmHg Peak Spence BP: 86 mmHg Angina Score: None Total METS: 3.4 Resting ECG Sinus rhythm. Stress ECG No ST changes. Arrhythmias None. Report Signatures Stress ECG Echo
--- NOTE | 2025-04-14 08:36 | ECG_ITS ---
Test Date: 2025-04-14 09:38:43 Measurements Intervals Harleigh Rate: 55 P: 65 CO: 182 QRS: -49 QRSD: 138 T: 23 QT: 463 QTc: 444 Interpretive Statements SINUS BRADYCARDIA WITH SINUS ARRHYTHMIA RIGHT BUNDLE BRANCH BLOCK [120+ ms QRS DURATION, UPRIGHT V1, 40+ ms S IN I/aVL/V4/V5/V6] LEFT ANTERIOR FASCICULAR BLOCK [QRS AXIS <= -45, QR IN I, RS IN II] SEPTAL MYOCARDIAL INFARCTION , PROBABLY OLD [40+ ms Q WAVE IN V1/V2] No previous ECG available for comparison Electronically Signed On 04-15-2025 18:33:27 CDT by Chung Pan M.D.
== END 2025-04-14 08:20 | disposition home or self-care (01) ==
PROVIDERS: PCP Emergency Medicine; Visit Provider Emergency Medicine
DX: R06.09 Other forms of dyspnea (principal)
CPT/HCPCS: 93005; 93351

== ENCOUNTER 2025-04-18 09:35 | Outpatient (CLI) | payer OTHER, SELFPAY ==
--- NOTE | ~2025-04-18 | MM_ITS ---
EXAMINATION: MM screening scarlett BI w eri HISTORY: Screening TECHNIQUE: Craniocaudal and mediolateral oblique 3-D tomosynthesis images were obtained and synthetic 2-D images were generated. CAD analysis was submitted and interpreted. COMPARISON: Comparison to multiple prior studies sequentially, with oldest reviewed study dated 03/18. BREAST PARENCHYMAL COMPOSITION: Not dense: There are scattered areas of fibroglandular density. FINDINGS: There is no evidence of suspicious mass, calcification, or architectural distortion to sugg est malignancy in either breast. There has been no suspicious interval change. IMPRESSION: 1. No mammographic evidence of malignancy. 2. Recommend routine screening mammography in one year. BI-RADS Category 1: Negative Reviewed, dictated and finalized at location []
== END 2025-04-18 09:36 | disposition home or self-care (01) ==
LOC: MICIMG 09:35
PROVIDERS: PCP Emergency Medicine; Visit Provider Emergency Medicine
DX: Z12.31 Encounter for screening mammogram for malignant neoplasm of breast (principal)
CPT/HCPCS: 77063; 77067

== ENCOUNTER 2025-05-17 07:52 | Outpatient (CLI) | payer OTHER, SELFPAY ==
--- NOTE | ~2025-05-17 | NM_ITS ---
EXAMINATION: NM kelly stress w perfusion DATE: 05/17/2025 11:27 INDICATION: Chest pain TECHNIQUE: Rest images were obtained following intravenous administration of 10.8 mCi Tc99m tetrofosmin (Myoview). The patient was infused intravenously with Lexiscan (Regadenoson). Then, 32.7 mCi Tc99m tetrofosmin (Myoview) was administered intravenously, and stress images were obtained. Data was todd nstructed into short axis and horizontal and vertical long axis SPECT images. Gated SPECT images were also obtained. COMPARISON: None. FINDINGS: There is no definite reversible or fixed perfusion abnormality to suggest ischemia or infarction. There is normal left ventricular chamber size, wall motion and ejection fraction. Left ventricular ejection fraction measures >70%. IMPRESSION: 1. Normal myocardial perfusion at rest and during stress. 2. Left ventricular ejection fraction measuring >70%. Reviewed, dictated and finalized at location A.
--- OUTSIDE RECORDS SUMMARY | 2025-05-17 07:56 | XMS_ITS | Clinical Summary ---
Author Organization [facility] Address [address] [place] [id number] Care Team Providers Care Senior Compliance Analyst Name Role Phone Julio C Lyle MD [...] PNEUM OCOCCAL CONJUGATE VACCINE 20-VALENT (PCV20), POLYSACCHARIDE [id number] CONJUGATE, ADJUVANT 0.5 ML (PF) IM 07/10/2022(Deferred: [...] t arm Pulse 59 10/06/2022 10:08 AM [employer] Temperature 36.8 C (98.3 F) 07/12/2022 7:35 [...] (#1) 2025 Medical Devices Implanted Type Area Hat Blocker Device Identifier Shelf Expiration Date Model / Serial / Lot Hemostatic Surgiflo 8ml W/ Thrombin 2993 - [id number] Implanted:Qty: 1 on 07/09/2022 by Bib Bunch MD at [facility] Hemostatic N/A: Neck [employer] 12/20/2023 2994 / / [id number] Hemostatic Surgifoam Sz12-7 1971 - [id number] Implanted:Qty: 1 on 07/09/2022 by Bib Bunch MD at [facility] Hemostatic N/A: Neck [employer]- [employer] 12/19/20251971 / / [id number] Mahamed Infinity 3.5x50mm Pre-Cut [id number] - Sna Implanted:Qty: 2 on 07/09/2022 by Bib Bunch MD at [facility] Mahamed N/A: Neck [employer]- SOFAMOR DANEK [id number] / NA / [place] Description:[place] [id number] 70 7 Sterilization Date 06/29/2022 Screw Infinity 3.5x12mm Mas [id number] - Sna Implanted:Qty: 2 on 07/09/2022 by Bib Bunch MD at [facility] Screw N/A: Neck [employer] [id number] / NA / [place] [id number] 70 7 Sterilization Date 06/29/2022 CHANDU REQ#[id number] Screw Infinity 3.5x14mm Mas [id number] - Sna Implanted:Qty: 3 on 07/09/2022 by Bib Bunch MD at [facility] Screw N/A: Neck [employer] [id number] / NA / [place] [id number] 70 7 Sterilization Date 06/29/2022 Screw Infinity 3.5x16mm Mas [id number] - Sna Implanted:Qty: 1 on 07/09/2022 by Bib Bunch MD at [facility] Screw N/A: Neck [employer] [id number] / NA / [place] [id number] 70 7 Sterilization Date 06/29/2022 Set Screw Infinity Oc M6 [id number] - Sna Implanted:Qty: 6 on 07/09/2022 by Bib Bunch MD at [facility] Screw N/A: Neck [employer] [id number] / NA / [place] [id number] 70 7 Sterilization Date 06/29/2022 Allograft [employer] [id number] - [id number] Implanted:Qty: 1 on 07/09/2022 by Bib Bunch MD at [facility] Tissue N/A: Neck [employer] 01/29/2024 [id number] / [id number] / Description: Requisition: [id number] Insurance ESSENCE O MCR RX MEDIMPACT Member Subscriber Plan / Payer (Ef fective 2014-Present) Name:Ruth Lopez Relation to Subscriber:Self Name:Antonella Lopezna Payer ID:Not on file Group ID:[id number] Type:RX Medicare Part D Address: [address] Advance Directives For more information, please contact: [phone] * Full Code (Latest Code Status on File) Date Activated Date Inactivated Comments 07/09/2022 5:51 PM 07/12/2022 3:10 PM * Full Code Date Activated Date Inactivated Comments 07/09/2022 3:35 PM 07/09/2022 5:51 PM Care Teams Senior Compliance Analyst Relationship Specialty Start Date End Date Julio C Lyle MD [address] [place] [id number] PCP - General Internal Medicine 01/07/22
--- OUTSIDE RECORDS SUMMARY | 2025-05-17 07:56 | XMS_ITS | Encounter Summary ---
Author Organization [facility] Address [address] [place] [id number] Care Team Providers Care Head Turning Machine Operator Name Role Phone Julio C Lyle MD Primary Care Provider [phone] Reason for Visit * Reason Onset Date Comments Post-Op Medical Management 07/09/2022 Spoke unruly/ ULISES Bullock Encounter Details Date Type Department Care Team (Late st Contact Info) Description 07/09/2022 Telephone [facility] Admitting [address] [place] [address] [place] [address] [address] Post-Op Medical Management (Spoke hunter [...] on filedocumented in this encounter Care Teams Head Turning Machine Operator Relationship Specialty Start Date End Date Julio C Lyle MD [address] [facility] [address] [place] [address] PCP - General Internal Medicine 01/07/22 documented as of this encounter
--- OUTSIDE RECORDS SUMMARY | 2025-05-17 07:56 | XMS_ITS | Encounter Summary ---
Author Organization [facility] Address [address] [place] [address] Care Team Providers Care Char Conveyor Tender Name Role Phone Julio C Lyle MD Primary Care Provider [phone] Encounter Details Date Type Department Care Team (Late st Contact Info) Description 07/09/2022 Telephone [facility] Admitting [address] [place] [address] [place] [address] [address] Social History Tobacco Use Types [...] on filedocumented in this encounter Care Teams Char Conveyor Tender Relationship Specialty Start Date End Date Julio C Lyle MD [address] [place] [phone] PCP - General Internal Medicine 01/07/22 documented as of this encounter
--- NOTE | 2025-05-17 08:18 | EST_ITS ---
Patient Info Name: Ruth Lopez Age: 75 years : 1950 Gender: Female Ht: 62 in Wt: 125 lbs BSA: 1.58 m2 HR: 57 bpm BP: 143 / 71 mmHg Exam Date: 05/17/2025 8:18 AM Patient Status: O Admit Date: 05/17/2025 Exam Type: CA stress kelly w NM A regadenoson stress test was performed. Staff Referring Physician: Jonathan Damon DO Attending Provider: Jonathan Damon DO Exercise Technologist: Osiris Stein Exercise Physician: Jonathan Damon DO Summary 1. 1. Negative lexiscan stress test for ischemic ST changes by ECG criteria. 2. 2. Baseline hypertension. 3. 3. Nuclear scan to follow and will be reported separately. Please correlate with it. 4. 4. Patient informed of the above results. Protocol: Lexiscan Stress ECG Details Stage: REST Duration (min): 1 min : 7 sec HR (bpm): 54 SBP (mmHg): 143 DBP (mmHg): 71 Stage: REST Duration (min): 4 min : 25 sec HR (bpm): 56 SBP (mmHg): 143 DBP (mmHg): 71 Stage: STAGE 1 Duration (min): 1 min : 0 sec HR (bpm): 72 SBP (mmHg): 155 DBP (mmHg): 79 Stage: RECOVERY Duration (min): 1 min : 0 sec HR (bpm): 79 SBP (mmHg): 155 DBP (mmHg): 79 Stage: RECOVERY Duration (min): 2 min : 0 sec HR (bpm): 81 SBP (mmHg): 155 DBP (mmHg): 79 Stage: RECOVERY Duration (min): 3 min : 0 sec HR (bpm): 76 SBP (mmHg): 130 DBP (mmHg): 72 Stage: RECOVERY Duration (min): 4 min : 0 sec HR (bpm): 72 SBP (mmHg): 130 DBP (mmHg): 72 Stage: RECOVERY Duration (min): 5 min : 0 sec HR (bpm): 71 SBP (mmHg): 130 DBP (mmHg): 72 Stage: RECOVERY Duration (min): 6 min : 0 sec HR (bpm): 68 SBP (mmHg): 130 DBP (mmHg): 72 Stage: RECOVERY Duration (min): 7 min : 0 sec HR (bpm): 68 SBP (mmHg): 131 DBP (mmHg): 71 Stage: RECOVERY Duration (min): 7 min : 7 sec HR (bpm): 68 SBP (mmHg): 131 DBP (mmHg): 71 Rest HR: 56 bpm Peak HR: 82 bpm Rest Sys BP: 143 mmHg Peak Sys BP: 155 mmHg Max Pred HR: 143 bpm % Max Pred HR: 57 % Target HR: 122 bpm Max RPP: 12,710 bpm*mmHg Termination Reason: Completed protocol Cardiac Symptoms: Shortness of breath Total Time: 1 min : 0 sec Rest Spence BP: 71 mmHg Peak Spence BP: 79 mmHg Total Dose: 0.4 mg Resting ECG Sinus rhythm, RBBB, LAFB. Stress ECG No ST changes. Arrhythmias None. Report Signatures
== END 2025-05-17 07:53 | disposition home or self-care (01) ==
PROVIDERS: PCP Emergency Medicine; Visit Provider Internal Medicine Cardiovascular Disease
DX: R07.9 Chest pain, unspecified (principal)
CPT/HCPCS: 78452; 93017; A9502; J2785

== ENCOUNTER 2025-09-06 11:37 | Outpatient (CLI) | payer OTHER, SELFPAY ==
--- NOTE | ~2025-09-06 | CT_ITS ---
EXAMINATION: CT sinus wo/w con COMPARISON: None HISTORY: Other specified disorders of nose and nasal sinuses TECHNIQUE: Axial images were obtained without and with intravenous IV contrast. Sagittal, coronal reconstruction images were obtained from the axial views. CT scan performed using dose optimization techniques including the following automated exposure control; adjustment of mA and/or kV; use of iterative reconstruction technique. Automatic exposure control was used to reduce radiation dose. Permanent radiation dose record is archived to PACS. FINDINGS: The visualized brain parenchyma and optic globes are unremarkable. The soft tissues appear unremarkable. Frontal sinuses are unremarkable. Minimal mucosal thickening in the ethmoidal air cells. The maxillary sinuses appear unremarkable. The ostiomeatal complexes are patent. Nasal septum deviated to the left. Minimal thickening of the turbinates but no significant narrowing of the nasal cavities. No significant mucosal thickening in the sphenoid sinuses. There is no osseous destruction or wall thickening. No abnormal enhancement is identified IMPRESSION: No significant sinusitis Reviewed, dictated and finalized at location P. ADMINISTRATOR IMPRESSION: No significant sinusitis
[2025-09-06 12:01] LABS: Estimated Glomerular Filt Rate > 60
== END 2025-09-06 11:38 | disposition home or self-care (01) ==
LOC: MICIMG 11:39
PROVIDERS: PCP Emergency Medicine; Visit Provider Emergency Medicine
DX: J34.89 Other specified disorders of nose and nasal sinuses (principal)
CPT/HCPCS: 70488; Q9967